=== PATIENT | male | born 1945 | race Caucasian/White ===

== ENCOUNTER 2022-10-12 15:37 | Emergency (ER) | payer OTHER ==
--- OUTSIDE RECORDS SUMMARY | 2022-10-12 15:41 | XMS REPORT | Continuity of Care Document ---
:1945 Author Organization [facility] t Address [address] [place] [address] Care Team Providers Name Role Phone [facility] Primary Care Physician [phone] SWETA ROSAS Attending Clinician Unavailable SARAH HAIR Attending Clinician Unavailable [facility] Attending Clinician Unavailable CRISTY LIRIANO Attending Clinician Unavailable [facility] Attending Clinician Unavailable [id number] Attending Clinician Unavailable Sweta Rosas DO Attending Clinician Payers Payer Name Policy Type Policy Number Effective Date Expiration Date S serafin [employer] 7 [id number] 2022 [id number] GOLD 00:00:00 PLUS 2021 Problems Condition Condition Condition Status Onset Resolution Last Treating Co mments Source Name Details Category Date Date Treatment Clinician Date Abnormal Abnormal Disease Active 2021-[address] scan, CT scan, 2 Seybol d chest chest 00:00: - 00 Externa l Mass of Mass of Disease Active 2021-10 Joy left lung left lung 2 Seyb old 00:00: - 00 Externa l Elevated Elevated Disease Active 2021-10 Kelse y liver liver 2 Seybold function function 00:00: - tests tests 00 Externa l 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 2 Seybol d 00:00: - 00 Externa l Memory Memory Disease Active 2021-10 Joy loss loss 2 Seybold 00:00: - 00 Externa l Hyperkalem Hyperkalem Disease Active 2021-10 Doug velasquez ia ia 2-09 Seybold 00:00: - 00 Externa l Falls Falls Disease Active 2021-10 Joy 1-16 Seybold 00:00: - 00 Externa l 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 1-16 Seybold disease disease 00:00: - 00 Externa l PVD PVD Disease Active 2021-10 Joy (periphera (periphera 1-16 Se ybold l vascular l vascular 00:00: - disease) disease) 00 Culinary Director a l Primary Primary Disease Active Joy insomnia insomnia 6-29 Seybol d 00:00: - 00 Externa l Current Current Disease Active Joy mild mild 5-05 Seybold 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:00: - major major 00 Externa depressive depressive l disorder disorder without without prior prior episode episode Gastroesop Gastroesop Disease Active Doug velasquez hageal hageal 5-05 Seybold reflux reflux 00:00: - disease disease 00 Externa without without l esophagiti esophagiti s s Other Other Disease Active Joy emphysema emphysema 5-05 Seyb old 00:00: - 00 Externa l Primary Primary Disease Active Joy hypertensi hypertensi 5-05 Se ybold on on 00:00: - 00 Externa l 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 00:00: - with with 00 Externa hyperlipid hyperlipid l emia emia History of History of Disease Active Doug velasquez skin skin 5-05 Seybold cancer cancer 00:00: - 00 Externa l Bipolar 1 Bipolar 1 Disease Active Ge kothariy disorder disorder 5-05 Seybol d 00:00: - 00 Externa l 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 Social History Social Habit Start Date Stop Date Quantity Comments Source History of tobacco Cigarette Smoker Joy davion - use External Alcohol intake 2022-09-06 2022-09-06 Ex-drinker Joyalex roberts - 00:00:00 00:00:00 (finding) External Education 2022-02-23 2022-02-23 16 Joy Guzman - 00:00:00 00:00:00 External Cigarettes smoked 2022-02-23 2022-02-23 Joy Kotharidavion - current (pack per 00:00:00 00:00:00 Externa l day) - Reported Cigarette 2022-02-23 2022-02-23 Joyalex Guzman - pack-years 00:00:00 00:00:00 External Tobacco use and 2022-02-23 2022-02-23 Smokeless tobacco Ke janessa Kothariybamie - exposure 00:00:00 00:00:00 non-user External Sex [birth year] Joy ricardo - 00:00:00 00:00:00 External Smoking Status Start Date Stop Date Source Smokes tobacco daily 2022-02-23 00:00:00 Joyalex Guzman - External Medications Ordered Filled Start Stop Current Ordering Indication Dosage Frequency Signature Comments Components Source Medication Medication Date Date Medication? Clinician (SIG) Name Name Multiple 2021-10 Yes 1{each} Take 1 Lexus ey Vitamins-Ir 1-16 each by Marci dia on 10:24: mouth - (MULTIVITAM 35 daily Externa IN PLUS l IRON ADULT OR) Multiple 2021-10 Yes 1{each} Take 1 Lexus ey Vitamins-Ir 1-16 each by Deanneo south on 10:24: mouth - (MULTIVITAM 35 daily Externa IN PLUS l IRON ADULT OR) Aspirin 81 2021-10 Yes 81mg Take 81 mg K elsey MG oral 1-16 by mouth Seybold Chewable 10:17: daily - Tablet 02 Externa l Lisinopril 2021-10 Yes 10mg Take 10 mg K elsey 10 MG oral 1-16 by mouth Seybo ld Tablet 10:17: daily - 02 Externa l Sildenafil 2021-10 Yes 100mg QD Take 100 Ke lsey Citrate 100 1-16 mg by Seybold MG oral 10:17: mouth - Tablet 02 daily as Externa needed l Aspirin 81 2021-10 Yes 81mg Take 81 mg K elsey MG oral 1-16 by mouth Seybold Chewable 10:17: daily - Tablet 02 Externa l Lisinopril 2021-10 Yes 10mg Take 10 mg K elsey 10 MG oral 1-16 by mouth Seybo ld Tablet 10:17: daily - 02 Externa l Sildenafil 2021-10 Yes 100mg QD Take 100 Ke lsey Citrate 100 1-16 mg by Seybold MG oral 10:17: mouth - Tablet 02 daily as Externa needed l Testosteron 2021-10- No Apply Lexus ey e 50 MG/5GM -16 11-16 topically Se ybold (1%) 10:17: 00:00 daily - transdermal 02 :00 Externa Gel l busPIRone 2021-10- No 15mg Take 15 mg K elsey HCl 15 MG 1-16 11-16 by mouth 3 Sey bold oral Tablet 10:17: 00:00 times - 00 :00 daily Externa l Docusate 2021-10- No 100mg Take 100 Ge sey Sodium 1-16 11-16 mg by Seybold (DSS) 100 10:16: 00:00 mouth 2 - MG oral 50 :00 times Externa Capsule daily l Lactulose 2021-10- No 10g Take 10 g Ke lsey 10 g oral 1-16 11-16 by mouth 3 Sey bold Pack 10:16: 00:00 times - 41 :00 daily Externa l Nicotine 2021-10- No 2mg Take 2 mg Ge sey Polacrilex 1-16 11-16 by mouth Seyb old 2 MG 10:16: 00:00 as needed - mouth/throa 38 :00 Externa t Lozenge l Fluticasone 2021-10 Yes 2{puff} Inhale 2 Joy Propionate 1-16 puffs into Sey bold HFA 00:00: the lungs - (Flovent 00 2 times Externa HFA) 110 daily l MCG/ACT inhalation Aerosol Fluticasone 2021-10 Yes 2{puff} Inhale 2 Joy Propionate 1-16 puffs into Sey bold HFA 00:00: the lungs - (Flovent 00 2 times Externa HFA) 110 daily l MCG/ACT inhalation Aerosol Albuterol 2021-10 Yes [id number] 2{puff} Q.25D Inhale 2 Joy HFA 108 (90 0-12 puffs into Se ybold Base) 00:00: the lungs - MCG/ACT IN 00 every 6 Culinary Director a AERS hours as l needed for wheezing Carvedilol 2021-10 Yes 6.25mg Take 1 Ge sey 6.25 MG 0-12 tablet Seybold oral Tablet 00:00: (6.25 mg - 00 total) by Externa mouth in l the morning and 1 tablet (6.25 mg total) in the evening. Take with meals. Albuterol 2021-10 Yes [id number] 2{puff} Q.25D Inhale 2 Joy HFA 108 (90 0-12 puffs into Se ybold Base) 00:00: the lungs - MCG/ACT IN 00 every 6 Culinary Director a AERS hours as l needed for wheezing Carvedilol 2021-10 Yes 6.25mg Take 1 Ge sey 6.25 MG 0-12 tablet Seybold oral Tablet 00:00: (6.25 mg - 00 total) by Externa mouth in l the morning and 1 tablet (6.25 mg total) in the evening. Take with meals. Famotidine Yes [id number] 20mg Take 1 Joy (PEPCID) 20 9-19 tablet (20 Se ybold MG oral 00:00: mg total) - tablet 00 by mouth 2 Externa times l daily Famotidine Yes [id number] 20mg Take 1 Joy (PEPCID) 20 9-19 tablet (20 Se ybold MG oral 00:00: mg total) - tablet 00 by mouth 2 Externa times l daily Quetiapine Yes [id number] 400mg Take 1 Joy Fumarate 9-01 tablet Seybold 400 MG oral 00:00: (400 mg - Tablet 00 total) by Externa mouth l nightly Quetiapine Yes [id number] 400mg Take 1 Joy Fumarate 06-22 tablet Seybold 400 MG oral 00:00: (400 mg - Tablet 00 total) by Externa mouth l nightly Metformin Yes PLEASE SEE Ke lsey HCl ER, 8 ATTACHED Seybold OSM, 500 MG 00:00: FOR - oral TABLET 00 DETAILED Exte rna SR 24 HR DIRECTIONS l Metformin Yes PLEASE SEE Ke lsey HCl ER, 05-29 ATTACHED Seybold OSM, 500 MG 00:00: FOR - oral TABLET 00 DETAILED Exte rna SR 24 HR DIRECTIONS l Bupropion Yes 300mg Take 1 Kelse y HCL XL 300 8-04 tablet Seybold MG OR TB24 00:00: (300 mg - 00 total) by Externa mouth l daily Bupropion Yes 300mg Take 1 Kelse y HCL XL 300 8-04 tablet Seybold MG OR TB24 00:00: (300 mg - 00 total) by Externa mouth l daily Atorvastati Yes 80mg Take 1 Lexus ey n Calcium 7-28 tablet (80 Seyb old 80 MG oral 00:00: mg total) - Tablet 00 by mouth Externa daily l Atorvastati Yes 80mg Take 1 Lexus ey n Calcium 7-28 tablet (80 Seyb old 80 MG oral 00:00: mg total) - Tablet 00 by mouth Externa daily l Fluticasone 2021- No [id number] 2{puff} Inhale 2 Joy Propionate 7- 11-16 puffs into Se ybold HFA 00:00: 00:00 the lungs - (Flovent 00 :00 2 times Externa HFA) 110 daily l MCG/ACT inhalation Aerosol Sildenafil Yes 100mg QD Take 100 Ke lsey Citrate 100 5-05 mg by Seybold MG oral 13:44: mouth Tablet 08 daily as needed Aspirin 81 Yes 81mg Take 81 mg K elsey MG oral 5-05 by mouth Seybold Chewable 13:44: daily Tablet 04 Atorvastati Yes 80mg Take 80 mg Joy n Calcium 5-05 by mouth Seybol d 80 MG oral 13:44: daily Tablet 04 Bupropion 2022-0 Yes 300mg Take 300 Ge sey HCL XL 300 5-05 mg by Seybold MG OR TB24 13:44: mouth 04 daily busPIRone 0 Yes 15mg Take 15 mg Ke lsey HCl 15 MG 5-05 by mouth 3 Seyb old oral Tablet 13:44: times 04 daily Docusate Yes 100mg Take 100 Lexus ey Sodium 5-05 mg by Seybold (DSS) 100 13:44: mouth 2 MG oral 04 times Capsule daily Famotidine Yes 20mg Take 20 mg K elsey (PEPCID) 20 5-05 by mouth Seyb old MG oral 13:44: in the tablet 04 morning and 20 mg in the evening. Lactulose Yes 10g Take 10 g Ge sey 10 g oral 5-05 by mouth 3 Seyb old Pack 13:44: times 04 daily Lisinopril Yes 10mg Take 10 mg K elsey 10 MG oral 5-05 by mouth Seybo ld Tablet 13:44: daily 04 Metformin Yes 500mg Take 500 Ge sey HCl ER, 5-05 mg by Seybold OSM, 500 MG 13:44: mouth oral TABLET 04 daily SR 24 HR (with breakfast) Nicotine Yes 2mg Take 2 mg Lexus ey Polacrilex 5-05 by mouth Seybo ld 2 MG 13:44: as needed mouth/throa 04 t Lozenge Quetiapine Yes Take by Lexus ey Fumarate 5-05 mouth Seybold 400 MG oral 13:44: daily TABLET SR 04 24 HR Testosteron Yes Apply Kelse y e 50 MG/5GM 5-05 topically Sey bold (1%) 13:44: daily transdermal 04 Gel Flovent HFA Yes 2{puff} 2 puffs 2 Joy 110 MCG/ACT 4-07 times Seybold inhalation 00:00: daily Aerosol 00 Carvedilol Yes Joy 6.25 MG 2-23 Seybold oral Tablet 00:00: 00 Immunizations Ordered Immunization Filled Immunization Date Status Commen ts Source Name Name Influenza Virus 2022-09-06 Completed Joy Se ybold Vaccine, 00:00:00 - External Quadrivalent, High Dose, Age 65 And Up Pneumococcal Vaccine, 2022-09-06 Completed Ge sey Seybold Polysaccharide 00:00:00 - External Influenza Virus 2022-09-06 Completed Joy Se ybold Vaccine, 00:00:00 - External Quadrivalent, High Dose, Age 65 And Up Pneumococcal Vaccine, 2022-09-06 Completed Ge sey Seybold Polysaccharide 00:00:00 - External Vital Signs Vital Name Observation Time Observation Value Comments Source Systolic blood 2022-09-29 16:31:00 128 mm[Hg] Joy Seybold - pressure External Diastolic blood 2022-09-29 16:31:00 75 mm[Hg] Kelse y Seybold - pressure External Heart rate 2022-09-29 16:31:00 81 /min Joy Ratliff eybold - External Body temperature 2022-09-29 16:31:00 36.06 Yamileth Lexus ey Seybold - External Respiratory rate 2022-09-29 16:31:00 14 /min Lexus ey Seybold - External Body height 2022-09-29 16:31:00 182.9 cm Joy Ratliff eybold - External Body weight 2022-09-29 16:31:00 73.936 kg Joy Ratliff eybold - External BMI 2022-09-29 16:31:00 22.11 kg/m2 Joy Ratliff eybold - External Oxygen saturation in 2022-09-29 16:31:00 99 /min Joy Kothariybold - Arterial blood by External Pulse oximetry Oxygen saturation in 2022-09-06 17:11:00 93 /min Joy Seybold - Arterial blood by External Pulse oximetry Systolic blood 2022-09-06 16:09:00 134 mm[Hg] Joy Seybold - pressure External Diastolic blood 2022-09-06 16:09:00 83 mm[Hg] Kelse y Seybold - pressure External Body temperature 2022-09-06 16:09:00 35.72 Yamileth Lexus ey Seybold - External Respiratory rate 2022-09-06 16:09:00 21 /min Lexus osman Seybold - External Body height 2022-09-06 16:09:00 182.9 cm Joy S eybold - External Body weight 2022-09-06 16:09:00 75.751 kg Joy Ratliff eybold - External BMI 2022-09-06 16:09:00 22.65 kg/m2 Joy Ratliff eybold - External Systolic blood 2022-02-23 18:35:00 132 mm[Hg] Joy Seybold pressure Diastolic blood 2022-02-23 18:35:00 83 mm[Hg] Kelse y Seybold pressure Heart rate 2022-02-23 18:35:00 60 /min Joy Ratliff eybold Body temperature 2022-02-23 18:35:00 36.83 Yamileth Lexus ey Seybold Respiratory rate 2022-02-23 18:35:00 14 /min Lexus ey Seybold Body height 2022-02-23 18:35:00 182.9 cm Joy Ratliff eybold Body weight 2022-02-23 18:35:00 77.111 kg Joy Ratliff eybold BMI 2022-02-23 18:35:00 23.06 kg/m2 Joy osmanbold Oxygen saturation in 2022-02-23 18:35:00 98 /min Joy Thomas Arterial blood by Pulse oximetry Procedures Procedure Date / Time Performed Performing Clinician Sourc e [facility] 2022-09-06 17:22:40 Sweta Rosas ld - External Encounters Start End Encounter Admission Attending Care Care Encounter Source Date/Time Date/Time Type Type Clinicians Facility Department ID 2022-10-13 2022-10-13 Outpatient JOY ROSAS [id number] Joy 11:15:00 11:15:00 SWETA Seybol d 2022-10-13 2022-10-13 Outpatient JOY HAIR [id number] Joy 10:00:00 10:00:00 WALID Seybol d 2022-10-12 2022-10-12 Outpatient JOY ROSAS [id number] Joy 14:00:00 14:00:00 SWETA Seybol d 2022-10-12 2022-10-12 Outpatient JOY ROSAS [id number] Joy 10:30:00 10:30:00 SWETA Seybol d 2022-10-11 2022-10-11 Outpatient JOY ZEE [id number] Joy 11:30:00 11:30:00 Seybol d 2022-10-11 2022-10-11 Outpatient JOY ZEE [id number] Joy 10:30:00 10:30:00 Seybol d 2022-10-10 2022-10-10 Outpatient PREZAS, JOY ZEE [id number] Joy 00:00:00 00:00:00 SWETA Seybol d 2022-10-09 2022-10-09 Outpatient [facility] JOY ZEE [id number] Joy 13:30:00 13:30:00 Seybol d 2022-10-06 2022-10-06 Outpatient PREZAS, JOY ZEE [id number] Joy 00:00:00 00:00:00 SWETA Seybol d 2022-10-05 2022-10-05 Outpatient PREZAS, JOY ZEE [id number] Joy 11:00:00 11:00:00 SWETA Seybol d 2022-10-04 2022-10-04 Outpatient JOY ZEE [id number] Joy 09:30:00 09:30:00 Seybol d 2022-10-04 2022-10-04 Outpatient PREZAS, JOY ZEE [id number] Joy 00:00:00 00:00:00 SWETA Seybol d 2022-10-04 2022-10-04 Outpatient PREZAS, JOY ZEE [id number] Joy 00:00:00 00:00:00 SWETA Seybol d 2022-10-04 2022-10-04 Outpatient CONFERENCE, JOY ZEE [id number] Joy 00:00:00 00:00:00 LDC Seybol d 2022-10-02 2022-10-02 Outpatient LAB90 JOY ZEE [id number] Joy 09:45:00 09:45:00 Seybol d 2022-10-02 2022-10-02 Outpatient PREZAS, JOY ZEE [id number] Joy 00:00:00 00:00:00 SWETA Seybol d 2022-10-02 2022-10-02 Outpatient JOY ZEE [id number] Joy 00:00:00 00:00:00 Seybol d 2022-09-29 2022-09-29 Outpatient LAB90 JOY ZEE [id number] Joy 11:15:00 11:15:00 Seybol d 2022-09-29 2022-09-29 Outpatient PREZAS, JOY ZEE [id number] Joy 10:30:00 10:30:00 SWETA Seybol d 2022-09-29 2022-09-29 Outpatient PREZAS, JOY ZEE [id number] Joy 00:00:00 00:00:00 SWETA Seybol d 2022-09-28 2022-09-28 Outpatient JOY ZEE [id number] Joy 13:15:00 13:15:00 Seybol d 2022-09-28 2022-09-28 Outpatient LAB47 JOY ZEE [id number] Joy 11:15:00 11:15:00 Seybol d 2022-09-28 2022-09-28 Outpatient JOY ZEE [id number] Joy 10:30:00 10:30:00 Seybol d 2022-09-22 2022-09-22 Outpatient JOY ZEE [id number] Joy 13:15:00 13:15:00 Seybol d 2022-09-22 2022-09-22 Outpatient JOY ZEE [id number] Joy 11:00:00 11:00:00 Seybol d 2022-09-22 2022-09-22 Outpatient PREZAS, JOY ZEE [id number] Joy 00:00:00 00:00:00 SWETA Seybol d 2022-09-22 2022-09-22 Outpatient PREZAS, JOY ZEE [id number] Joy 00:00:00 00:00:00 SWETA Seybol d 2022-09-07 2022-09-07 Outpatient PREZASJOY [id number] Joy 00:00:00 00:00:00 SWETA Seybol d 2022-09-06 2022-09-06 Outpatient LAB90 JOY ZEE [id number] Joy 11:45:00 11:45:00 Seybol d 2022-09-06 2022-09-06 Outpatient PREZAS, JOY ZEE [id number] Joy 10:45:00 10:45:00 SWETA Seybol d 2022-08-30 2022-08-30 Outpatient PREZAS, JOY ZEE [id number] Joy 13:45:00 13:45:00 SWETA Seybol d 2022-08-28 2022-08-28 Outpatient PREZAS, JOY ZEE [id number] Joy 09:15:00 09:15:00 SWETA Seybol d 2022-08-25 2022-08-25 Outpatient PREZAS, JOY ZEE [id number] Joy 14:15:00 14:15:00 SWETA Seybol d 2022-08-23 2022-08-23 Outpatient PREZAS, JOY ZEE [id number] Joy 00:00:00 00:00:00 SWETA Seybol d 2022-07-31 2022-07-31 Outpatient PREZAS, JOY ZEE [id number] Joy 00:00:00 00:00:00 SWETA Seybol d 2022-07-18 2022-07-18 Outpatient PREZAS, JOY ZEE [id number] Joy 14:00:00 14:00:00 SWETA Seybol d 2022-06-22 2022-06-22 Outpatient PREZAS, JOY ZEE [id number] Joy 00:00:00 00:00:00 SWETA Seybol d 2022-05-26 2022-05-26 Outpatient PREZAS, JOY ZEE [id number] Joy 13:30:00 13:30:00 SWETA Seybol d 2022-04-19 2022-04-19 Office Prezas, Mares [id number] Joy 14:45:00 15:15:00 Visit Sweta Hoyt [id number] Se ybold [id number] 2022-04-18 2022-04-18 Outpatient PREZAS, JOY ZEE [id number] Joy 09:45:00 09:45:00 SWETA Seybol d 2022-04-18 2022-04-18 Outpatient PREZAS, JOY JOY [id number] Joy 00:00:00 00:00:00 SWETA Seybol d 2022-03-29 2022-03-29 Outpatient PREZAS, JOY ZEE [id number] Joy 00:00:00 00:00:00 SWETA Seybol d 2022-03-28 2022-03-28 Outpatient PREZAS, JOY ZEE [id number] Joy 00:00:00 00:00:00 SWETA Seybol d 2022-03-08 2022-03-08 Outpatient PREZAS JOY ZEE [id number] Joy 00:00:00 00:00:00 SWETA Seybol d 2022-03-07 2022-03-07 Outpatient LAB90 JOY ZEE [id number] Joy 09:40:00 09:40:00 Seybol d 2022-03-02 2022-03-02 Outpatient PREZAS, JOY ZEE [id number] Joy 00:00:00 00:00:00 SWETA Seybol d 2022-02-23 2022-02-23 Office PrezasMasood [id number] Joy 13:30:00 14:15:00 Visit Sweta Lai [id number] davion [id number] 2022-02-23 2022-02-23 Outpatient PREZAS JOY ZEE [id number] Joy 00:00:00 00:00:00 SWETA Seybol d Results Test Description Test Time Test Comments Results Result Comments Source [facility] 2022-09-06 17:33:02 Test Item Value Reference Range Interpretation Comme nts [facility] left side (test code See_Comment L [Automated message] The system = [id number]) which generated this result transmitted ref erence range: 1.40 - 0.90 NA. The reference range was not u sed to interpret this result as normal/abnormal. [employer] right side (test See_Comment P resentation Factors: code = 71015-9C) Hypertensio n, Smoking HistoryExercise Modality: At RestBoth feet w ere retested twice with warm ers still couldnt get a good read on the left foot Normal - 1.40 - 1.00Borderline - 0.99 - 0.90Mild - 0.89 - 0.60Moderate - 0.59 - 0.30Severe - 0.29 - 0.00 [ Automated message] The sy stem which generated this result transmitted ref erence range: 1.40 - 0.90 NA. The reference range was not u sed to interpret this result as normal/abnormal. Lab Interpretation (test code Abnormal = 02526-7) Joy Guzman - External
[2022-10-12] MEDS ORDERED: NA CHLORIDE 0.9% 1,000 ML ONE (15:53)
[2022-10-12] MEDS ORDERED: NA CHLORIDE 0.9% 500 ML ONE (15:54)
[2022-10-12 16:13] LABS: Absolute Lymphocytes (CBC) 0.7 K/uL (0.7-4.9); Hematocrit 30.3 % (39.6-49.0); MCV 93.6 fL (80-100); MPV 6.5 fL (7.6-11.3); RBC Red Blood Cell Count 3.24 M/uL (4.33-5.43)
[2022-10-12 16:31] LABS: Albumin 3.2 g/dL (3.4-5.0); Bilirubin Total 0.3 mg/dL (0.2-1.0); Potassium 4.8 mmol/L (3.5-5.1); Troponin High Sensitivity 9.9 pg/mL (<58.9)
--- NOTE | 2022-10-12 17:14 | RAD REPORT ---
EXAM DESCRIPTION: RAD - Chest Single View - 10/12/2022 5:08 pm CLINICAL HISTORY: hypotension COMPARISON: No comparisonsNo comparisons FINDINGS: Lines: None. Lungs: Nodular opacities overlying both upper lobes. No consolidation or edema. Pleural: No significant pleural effusions or pneumothorax. Cardiac: The heart size is within normal limits. Mediastinum: Within normal limits. Bones: No acute fractures. Other: None IMPRESSION: Vague nodular opacities overlying both upper lobes. Mild probably not an acute process, recommend chest CT for further characterization. This need not be done emergently.
--- NOTE | 2022-10-12 17:21 | EDPHYS ---
Physician Documentation [facility] Name: Tom Braun Age: 77 yrs Sex: Male : 1945 Arrival Date: 10/12/2022 Time: 15:38 Bed 8 Private MD: ED Physician Darrick Louis HPI: 10/12 15:46 This 77 yrs old Male presents to ER via EMS with complaints of hypotension. rt 15:46 Presents to the ED from his cancer clinic with hypotension. Patient had a recent rt diagnosis of a metastatic cancer, either pancreatic or long as the primary. The patient was at a follow-up appointment today where he was found have a blood pressure of 70s over 40s. He states that he felt somewhat weak and dizzy at that time. Received fluids by EMS, about 300 cc. Hypotension has resolved, states that he feels well. Reports recent weight loss. Denies other acute complaints at this time, symptoms are moderate in severity, no other aggravating or alleviating factors. Historical: - Allergies: 15:41 No Known Allergies; kc6 - Home Meds: 15:45 Albuterol Inhl [Active]; Aspirin EC Oral [Active]; atorvastatin 80 mg oral tab kc6 [Active]; bupropion HCl 300 mg oral Tb24 [Active]; carvedilol 6.25 mg oral tab [Active]; famotidine 20 mg oral tab [Active]; fluticasone [Active]; lisinopril 10 mg oral tab [Active]; metformin 500 mg oral tab [Active]; quetiapine [Active]; sildenafil [Active]; - PMHx: 15:41 Hypertensive disorder; Diabetes mellitus; kc6 15:45 Cataract; Bipolar disorder; Gastroesophageal reflux disease; skin cancer; keratitis; kc6 emphysema; scoliosis; - PSHx: 15:41 Appendectomy; kc6 - Immunization history:: Client reports receiving the 2nd dose of the Covid vaccine, Flu vaccine is up to date. - Social history:: Smoking status: Patient reports the use of cigarette tobacco products, smokes one-half pack cigarettes per day. - Family history:: not pertinent. ROS: 15:46 Constitutional: Negative for fever, chills, and weight loss, Eyes: Negative for injury, rt pain, redness, and discharge, Neck: Negative for injury, pain, and swelling, Cardiovascular: Negative for chest pain, palpitations, and edema, Respiratory: Negative for shortness of breath, cough, wheezing, and pleuritic chest pain, Abdomen/GI: Negative for abdominal pain, nausea, vomiting, diarrhea, and constipation, Back: Negative for injury and pain, MS/Extremity: Negative for injury and deformity, Skin: Negative for injury, rash, and discoloration, Psych: Negative for depression, anxiety, suicide ideation, homicidal ideation, and hallucinations. 15:46 Constitutional: Positive for weight loss, hypotension. 15:46 Neuro: Positive for dizziness, Negative for syncope. Exam: 15:46 Constitutional: This is a well developed, well nourished patient who is awake, alert, rt and in no acute distress. Head/Face: Normocephalic, atraumatic. Eyes: Pupils equal round and reactive to light, extra-ocular motions intact. Lids and lashes normal. Conjunctiva and sclera are non-icteric and not injected. Cornea within normal limits. Periorbital areas with no swelling, redness, or edema. ENT: Nares patent. No nasal discharge, no septal abnormalities noted. Tympanic membranes are normal and external auditory canals are clear. Oropharynx with no redness, swelling, or masses, exudates, or evidence of obstruction, uvula midline. Mucous membranes moist. Neck: Trachea midline, no thyromegaly or masses palpated, and no cervical lymphadenopathy. Supple, full range of motion without nuchal rigidity, or vertebral point tenderness. No Meningismus. Chest/axilla: Normal chest wall appearance and motion. Nontender with no deformity. No lesions are appreciated. Cardiovascular: Regular rate and rhythm with a normal S1 and S2. No gallops, murmurs, or rubs. Normal PMI, no JVD. No pulse deficits. Respiratory: Lungs have equal breath sounds bilaterally, clear to auscultation and percussion. No rales, rhonchi or wheezes noted. No increased work of breathing, no retractions or nasal flaring. Abdomen/GI: Soft, non-tender, with normal bowel sounds. No distension or tympany. No guarding or rebound. No evidence of tenderness throughout. Skin: Warm, dry with normal turgor. Normal color with no rashes, no lesions, and no evidence of cellulitis. MS/ Extremity: Pulses equal, no cyanosis. Neurovascular intact. Full, normal range of motion. Neuro: Awake and alert, GCS 15, oriented to person, place, time, and situation. Cranial nerves II-XII grossly intact. Motor strength 5/5 in all extremities. Sensory grossly intact. Cerebellar exam normal. Normal gait. Psych: Awake, alert, with orientation to person, place and time. Behavior, mood, and affect are within normal limits. 15:46 ECG was reviewed by the Attending Physician. Vital Signs: 15:38 BP 136 / 89; Pulse 73; Resp 16 S; Pulse Ox 100% on R/A; Weight 72.57 kg (R); Height 6 kc6 ft. 0 in. (182.88 cm) (R); Pain 0/10; 16:52 BP 149 / 87; Pulse 83; Resp 17 S; Pulse Ox 100% on R/A; Pain 0/10; kc6 18:00 BP 159 / 90; Pulse 88; Resp 17; Pulse Ox 99% ; vg1 15:38 Body Mass Index 21.70 (72.57 kg, 182.88 cm) kc6 MDM: 15:39 Patient medically screened. rt 17:21 Differential Diagnosis Sepsis, anemia, dehydration. Data reviewed: vital signs, nurses rt notes, lab test result(s), EKG, radiologic studies. ED course: Patient presents to the ED with hypotension from the doctor's office. The hypotension has resolved upon arrival to the ED. Patient was hydrated in the emergency department symptomatic improvement. Labs are benign, chest x-ray shows expected findings due to no metastatic disease. Patient is stable for discharge, return precautions were discussed.. 18:21 ED course: Patient had an episode of vomiting while he was being discharged. He states rt that he still wishes to go home, feels well otherwise. Will prescribe patient Zofran. Patient to return if his symptoms worsen.. 10/12 15:46 Order name: CBC with Diff; Complete Time: 16:32 rt 10/12 15:46 Order name: CMP; Complete Time: 16:32 rt 10/12 15:46 Order name: EKG; Complete Time: 15:47 rt 10/12 15:46 Order name: Troponin High Sensitivity; Complete Time: 16:32 rt 10/12 15:46 Order name: Chest Single View XRAY; Complete Time: 17:17 rt 10/12 15:46 Order name: EKG - Nurse/Tech; Complete Time: 16:06 rt EC:46 Rate is 72 beats/min. Rhythm is regular, Normal Sinus Rhythm with No ectopy, Left rt bundle branch block. QRS [place] is Normal. MD interval is normal. QRS interval is normal. QT interval is normal. No Q waves. Administered Medications: 16:06 Drug: NS 0.9% 1500 ml Route: IV; Rate: 1 bolus; Site: left antecubital; kc6 Disposition Summary: 10/12/22 17:20 Discharge Ordered Location: Home rt Problem: new rt Symptoms: are resolved rt Condition: Stable rt Diagnosis - Hypotension, unspecified rt Followup: rt - With: Private Physician - When: 2 - 3 days - Reason: Discharge Instructions: - Discharge Summary Sheet rt - Hypotension rt Forms: - Medication Reconciliation Form rt - Thank You Letter rt - Antibiotic Education rt - Prescription Opioid Use rt Prescriptions: - Zofran 4 mg Oral Tablet - take 1 tablet by ORAL route every 12 hours As needed; 20 tablet; Refills: 0, rt Product Selection Permitted Signatures: Dispatcher [employer] Radha Teague RN RN kc6 Darrick Louis MD MD rt Corrections: (The following items were deleted from the chart) 15:50 15:41 PMHx: metastatic cancer; kc6 kc6
--- NOTE | 2022-10-12 17:21 | ER ---
Nurse's Notes [facility] Name: Tom Braun Age: 77 yrs Sex: Male : 1945 Arrival Date: 10/12/2022 Time: 15:38 Bed 8 Private MD: Diagnosis: Hypotension, unspecified Presentation: 10/12 15:38 Chief complaint: EMS states: they were called out to [facility] for kc6 hypotension, originally 80/60. Coronavirus screen:. Ebola Screen: No symptoms or risks identified at this time. Initial Sepsis Screen: Does the patient meet any 2 criteria? No. Patient's initial sepsis screen is negative. Does the patient have a suspected source of infection? No. Patient's initial sepsis screen is negative. Risk Assessment: Do you want to hurt yourself or someone else? Patient reports no desire to harm self or others. Onset of symptoms was October 12, 2022 at 15:41. 15:38 Method Of Arrival: EMS: [place] [id number] 15:38 Acuity: ALANNAH 3 kc6 Triage Assessment: 15:42 General: Appears in no apparent distress. comfortable, Behavior is calm, cooperative, kc6 appropriate for age. Pain: Denies pain. EENT: No signs and/or symptoms were reported regarding the EENT system. Neuro: [place] Agitation-Sedation Scale (RASS): 0 - Alert and Calm Level of Consciousness is awake, alert, obeys commands, Oriented to person, place, time, situation, Appropriate for age. Cardiovascular: Heart tones S1 S2 present Capillary refill < 3 seconds. Cardiovascular: Denies chest pain. Respiratory: Airway is patent Trachea midline Respiratory effort is even, unlabored, Respiratory pattern is regular, symmetrical, Breath sounds are clear bilaterally. Denies shortness of breath. GI: No signs and/or symptoms were reported involving the gastrointestinal system. : No signs and/or symptoms were reported regarding the genitourinary system. Derm: No signs and/or symptoms reported regarding the dermatologic system. Skin is intact, Skin is pink, warm \T\ dry. Musculoskeletal: No signs and/or symptoms reported regarding the musculoskeletal system. Circulation, motion, and sensation intact. Capillary refill < 3 seconds, Range of motion: intact in all extremities. Historical: - Allergies: 15:41 No Known Allergies; kc6 - Home Meds: 15:45 Albuterol Inhl [Active]; Aspirin EC Oral [Active]; atorvastatin 80 mg oral tab kc6 [Active]; bupropion HCl 300 mg oral Tb24 [Active]; carvedilol 6.25 mg oral tab [Active]; famotidine 20 mg oral tab [Active]; fluticasone [Active]; lisinopril 10 mg oral tab [Active]; metformin 500 mg oral tab [Active]; quetiapine [Active]; sildenafil [Active]; - PMHx: 15:41 Hypertensive disorder; Diabetes mellitus; kc6 15:45 Cataract; Bipolar disorder; Gastroesophageal reflux disease; skin cancer; keratitis; kc6 emphysema; scoliosis; - PSHx: 15:41 Appendectomy; kc6 - Immunization history:: Client reports receiving the 2nd dose of the Covid vaccine, Flu vaccine is up to date. - Social history:: Smoking status: Patient reports the use of cigarette tobacco products, smokes one-half pack cigarettes per day. - Family history:: not pertinent. Screenin:43 [facility] ED Fall Risk Assessment (Adult) History of falling in the last 3 months, kc6 including since admission No falls in past 3 months (0 pts) Confusion or Disorientation No (0 pts) Intoxicated or Sedated No (0 pts) Impaired Gait No (0 pts) Mobility Assist Device Used No (0 pt) Altered Elimination No (0 pt) Score/Fall Risk Level 0 - 2 = Low Risk. Abuse screen: Denies threats or abuse. Denies injuries from another. Nutritional screening: No deficits noted. Tuberculosis screening: No symptoms or risk factors identified. Assessment: 15:43 Reassessment: please see triage assessment. kc6 16:43 Reassessment: Patient appears in no apparent distress at this time. No changes from kc6 previously documented assessment. Patient and/or family updated on plan of care and expected duration. Pain level reassessed. Patient is alert, oriented x 3, equal unlabored respirations, skin warm/dry/pink. Patient denies pain at this time. Patient states feeling better. Patient states symptoms have improved. 18:33 Reassessment: Patient appears in no apparent distress at this time. Patient and/or vg1 family updated on plan of care and expected duration. Pain level reassessed. Patient is alert, oriented x 3, equal unlabored respirations, skin warm/dry/pink. Patient denies pain at this time. Patient states feeling better. Patient states symptoms have improved. Vital Signs: 15:38 BP 136 / 89; Pulse 73; Resp 16 S; Pulse Ox 100% on R/A; Weight 72.57 kg (R); Height 6 kc6 ft. 0 in. (182.88 cm) (R); Pain 0/10; 16:52 BP 149 / 87; Pulse 83; Resp 17 S; Pulse Ox 100% on R/A; Pain 0/10; kc6 18:00 BP 159 / 90; Pulse 88; Resp 17; Pulse Ox 99% ; vg1 15:38 Body Mass Index 21.70 (72.57 kg, 182.88 cm) 6 ED Course: 15:38 Patient arrived in ED. kc6 15:38 Radha Box, RN is Primary Nurse. kc6 15:39 Darrick Louis MD is Attending Physician. rt 15:41 Triage completed. kc6 15:43 Maintain EMS IV. Dressing intact. Good blood return noted. Site clean \T\ dry. Gauge \T\ lucina 6 site: 20G LAC. 15:44 Arm band placed on. kc6 15:44 Patient has correct armband on for positive identification. Bed in low position. Call kc6 light in reach. Side rails up X2. Adult w/ patient. 17:10 Chest Single View XRAY In Process Unspecified. EDMS 18:34 No provider procedures requiring assistance completed. IV discontinued, intact, vg1 bleeding controlled, No redness/swelling at site. Pressure dressing applied. Administered Medications: 16:06 Drug: NS 0.9% 1500 ml Route: IV; Rate: 1 bolus; Site: left antecubital; kc6 Medication: 18:34 VIS not applicable for this client. vg1 Outcome: 17:20 Discharge ordered by . rt 18:34 Discharged to home via wheelchair, with family. vg1 18:34 Condition: good 18:34 Instructed on discharge instructions, follow up and referral plans. medication usage, Demonstrated understanding of instructions, follow-up care, medications, Prescriptions given X 1. 18:34 Patient left the ED. vg1 Signatures: Dispatcher [employer] EDJnen Martinez RN RN vg1 Radha Box RN RN kc6 Darrick Louis MD MD rt Corrections: (The following items were deleted from the chart) 15:50 15:41 PMHx: metastatic cancer; kc6 kc6
[2022-10-12 18:42] VITALS: BP 159/90; O2SAT 99
--- NOTE | 2022-10-14 17:27 | EKG ---
Test Date: 2022-10-12 Test Time: 15:46:04 Grants Analyst: SAMINA MEASUREMENT RESULTS: Intervals: Rate: 72 [place]: 188 QRSD: 134 QT: 410 QTc: 448 [place]: P: 78 [place]: 188 QRS: -50 T: 97 INTERPRETIVE STATEMENTS: Normal sinus rhythm Left axis deviation Nonspecific intraventricular block Cannot rule out Anteroseptal infarct, age undetermined Abnormal ECG No previous ECG available for comparison Electronically Signed On 10-14-22 17:24:57 TUBE MACHINE OPERATOR by Kenan Pearson
== END 2022-10-12 18:34 | disposition home or self-care (01) ==
LOC: ER 15:37
DX: I95.9 Hypotension, unspecified (principal); E11.9 Type 2 diabetes mellitus without complications; I10 Essential (primary) hypertension; Z79.82 Long term (current) use of aspirin
CPT/HCPCS: 93005; 85025; 36415; 84484; 80053; 71045; 99284; J7040; J7030

== ENCOUNTER 2022-10-15 23:42 | Observation (INO) | payer OTHER ==
--- OUTSIDE RECORDS SUMMARY | 2022-10-15 23:47 | XMS REPORT | Continuity of Care Document ---
:1945 Author Organization [facility] t Address [address] [place] [address] Care Team Providers Name Role Phone Group, Joy Guzman [facility] Primary Care Physician SWETA ROSAS Attending Clinician Unavailable SARAH HAIR Attending Clinician Unavailable RADIOLOGY, DEPT Attending Clinician Unavailable RITIKA POQUOSON Attending Clinician Unavailable CONFERENCE, LDC Attending Clinician Unavailable LAB90 Attending Clinician Unavailable LAB47 Attending Clinician Unavailable Sweta Rosas DO Attending Clinician Payers Payer Name Policy Type Policy Number Effective Date Expiration Date S serafin [employer] MEDICARE 7 [id number] 2022 [id number] GOLD 00:00:00 PLUS 2021 Problems Condition Condition Condition Status Onset Resolution Last Treating Co mments Source Name Details Category Date Date Treatment Clinician Date Pancreatic Pancreatic Disease Active 2021-10 K elsey mass mass 2- Seybold 00:00: - 00 Externa l Abnormal Abnormal Disease Active 2021-10 Kelse y liver liver 2- Seybold ultrasound ultrasound 00:00: - 00 Externa l 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 2-22 Se ybold n n 00:00: - 00 Externa l Abnormal Abnormal Disease Active 2021-[address] scan, CT scan, 2 Seybol d chest chest 00:00: - 00 Externa l Mass of Mass of Disease Active 2021-10 Joy left lung left lung 2- Seyb old 00:00: - 00 Externa l [...] Disease Active 2021-10 Doug velasquez ia ia 2 Seybold 00:00: - 00 Externa l Falls Falls Disease Active 2021-10 Joy 16 Seybold 00:00: - 00 Externa l 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 116 Seybold disease disease 00:00: - 00 Externa l PVD PVD Disease Active 2021-10 Joy (periphera (periphera 11-06 Se ybold l vascular l vascular 00:00: - disease) disease) 00 Slot Tag Inserter a l Primary Primary Disease Active Joy [...] Bipolar 1 Bipolar 1 Disease Active Ge sey disorder disorder 02-23 Seybol d 00:00: - 00 Externa l Other Other Disease Active Joy idiopathic idiopathic 02-23 Se ybold scoliosis, scoliosis, 00:00: - thoracolum thoracolum 00 Ex terna bar region bar region l Well adult Well adult Disease Active Doug velasquez exam exam 02-23 Seybold 00:00: - 00 Externa l Tobacco Tobacco Disease Active Joy abuse abuse 02-23 Seybold 00:00: - 00 Externa l Hyperlipid Hyperlipid Disease Active Doug velasquez emia emia 02-23 Seybold 00:00: - 00 Externa l Allergies, Adverse Reactions, Alerts This patient has no known allergies or adverse reactions. Social History Social Habit Start Date Stop Date Quantity Comments Source History of tobacco Cigarette Smoker Joy Guzman - use External Alcohol intake 2022-09-06 2022-09-06 Ex-drinker Joy roberts - 00:00:00 00:00:00 (finding) External Education 2022-02-23 2022-02-23 16 Joy Guzman - 00:00:00 00:00:00 External Cigarettes smoked 2022-02-23 2022-02-23 Joyalex Guzman - current (pack per 00:00:00 00:00:00 Externa l day) - Reported Cigarette 2022-02-23 2022-02-23 Joyalex Guzman - pack-years 00:00:00 00:00:00 External Tobacco use and 2022-02-23 2022-02-23 Smokeless tobacco Hugo janessa davion - exposure 00:00:00 00:00:00 non-user External Sex [birth year] Joy ricardo - 00:00:00 00:00:00 External Smoking Status Start Date Stop Date Source Smokes tobacco daily 2022-02-23 00:00:00 Joy Thomas - External Medications Ordered Filled Start Stop Current Ordering Indication Dosage Frequency Signature Comments Components Source Medication Medication Date Date Medication? Clinician (SIG) Name Name Aspirin 81 2021-10 Yes 81mg Take 81 mg K elsey MG oral 2-22 by mouth Seybold Chewable 13:59: daily - Tablet 15 Externa l Sildenafil 2021-10 Yes 100mg QD Take 100 Ke lsey Citrate 100 2-22 mg by Seybold MG oral 13:59: mouth - Tablet 15 daily as Externa needed l Multiple 2021-10 Yes 1{each} Take 1 Lexus ey Vitamins-Ir 2-22 each by Seybo ld on 13:59: mouth - (MULTIVITAM 15 daily Externa IN PLUS l IRON ADULT OR) Aspirin 81 2021-10 Yes 81mg Take 81 mg K elsey MG oral 2-22 by mouth Seybold Chewable 13:59: daily - Tablet 15 Externa l Sildenafil 2021-10 Yes 100mg QD Take 100 Ke lsey Citrate 100 2-22 mg by Seybold MG oral 13:59: mouth - Tablet 15 daily as Externa needed l Multiple 2021-10 Yes 1{each} Take 1 Lexus ey Vitamins-Ir 2-22 each by Seybo ld on 13:59: mouth - (MULTIVITAM 15 daily Externa IN PLUS l IRON ADULT OR) Atorvastati 2021-10 Yes [id number] 80mg Take 1 Joy n Calcium 2-12 tablet (80 Seyb old 80 MG oral 00:00: mg total) - Tablet 00 by mouth Externa daily l Lisinopril 2021-10 Yes [id number] 10mg Take 1 K elsey 10 MG oral 2-12 tablet (10 Sey bold Tablet 00:00: mg total) - 00 by mouth Externa daily l Atorvastati 2021-10 Yes [id number] 80mg Take 1 Joy n Calcium 2-12 tablet (80 Seyb old 80 MG oral 00:00: mg total) - Tablet 00 by mouth Externa daily l Lisinopril 2021-10 Yes [id number] 10mg Take 1 K elsey 10 MG oral 2-12 tablet (10 Sey bold Tablet 00:00: mg total) - 00 by mouth Externa daily l Multiple 2021-10 Yes 1{each} Take 1 Lexus ey Vitamins-Ir 1-16 each by Seybo ld on 10:24: mouth - (MULTIVITAM 35 daily Externa IN PLUS l IRON ADULT OR) Multiple 2021-10 Yes 1{each} Take 1 Lexus ey Vitamins-Ir 1-16 each by Seybo ld on 10:24: mouth - (MULTIVITAM 35 daily [...] No Apply Lexus ey e 50 MG/5GM 1-16 11-16 topically Se ybold (1%) 10:17: 00:00 [...] l MCG/ACT inhalation Aerosol Albuterol 2021-10 Yes [id number] 2{puff} Q.25D Inhale 2 Joy HFA 108 (90 0-12 puffs into Se ybold Base) 00:00: the lungs - MCG/ACT IN 00 every 6 Slot Tag Inserter a AERS hours as l needed for wheezing Carvedilol 2021-10 Yes 6.25mg Take 1 Ge sey 6.25 MG 0-12 tablet Seybold oral Tablet 00:00: (6.25 mg - 00 total) by Externa mouth in l the morning and 1 tablet (6.25 mg total) in the evening. Take with meals. Albuterol 2021-10 Yes [id number] 2{puff} Q.25D Inhale 2 Joy HFA 108 (90 0-12 puffs into Se ybold Base) 00:00: the lungs - MCG/ACT IN 00 every 6 Slot Tag Inserter a AERS hours as l needed for wheezing Carvedilol 2021-10 Yes 6.25mg Take 1 Ge sey 6.25 MG 0-12 tablet Seybold oral Tablet 00:00: (6.25 mg - 00 total) by Externa mouth in l the morning and 1 tablet (6.25 mg total) in the evening. Take with meals. Albuterol 2021-10 Yes [id number] 2{puff} Q.25D Inhale 2 Joy HFA 108 (90 0-12 puffs into Se ybold Base) 00:00: the lungs - MCG/ACT IN 00 every 6 Slot Tag Inserter a AERS hours as l needed for wheezing Carvedilol 2021-10 Yes 6.25mg Take 1 Ge sey 6.25 MG 0-12 tablet Seybold oral Tablet 00:00: (6.25 mg - 00 total) by Externa mouth in l the morning and 1 tablet (6.25 mg total) in the evening. Take with meals. Albuterol 2021-10 Yes [id number] 2{puff} Q.25D Inhale 2 Joy HFA 108 (90 0-12 puffs into Se ybold Base) 00:00: the lungs - MCG/ACT IN 00 every 6 Slot Tag Inserter a AERS hours as l needed for wheezing Carvedilol 2021-10 Yes 6.25mg Take 1 Ge sey 6.25 MG 0-12 tablet Seybold oral Tablet 00:00: (6.25 mg - 00 total) by Externa mouth in l the morning and 1 tablet (6.25 mg total) in the evening. Take with meals. Famotidine Yes [id number] 20mg Take 1 Joy (PEPCID) 20 9-19 tablet (20 Se ybold MG oral 00:00: mg total) - tablet 00 by mouth 2 Externa times l daily Famotidine 0 Yes [id number] 20mg Take 1 Joy (PEPCID) 20 9-19 tablet (20 Se ybold MG oral 00:00: mg total) - tablet 00 by mouth 2 Externa times l daily Famotidine 2021-0 Yes [id number] 20mg Take 1 Joy (PEPCID) 20 9-19 tablet (20 Se ybold MG oral 00:00: mg total) - tablet 00 by mouth 2 Externa times l daily Famotidine 2021-0 Yes [id number] 20mg Take 1 Joy (PEPCID) 20 9-19 tablet (20 Se ybold MG oral 00:00: mg total) - tablet 00 by mouth 2 Externa times l daily Quetiapine 2021-0 Yes [id number] 400mg Take 1 Joy Fumarate 9-01 tablet Seybold 400 MG oral 00:00: (400 mg - Tablet 00 total) by Externa mouth l nightly Quetiapine 2021-0 Yes [id number] 400mg Take 1 Joy Fumarate 9-01 tablet Seybold 400 MG oral 00:00: (400 mg - Tablet 00 total) by Externa mouth l nightly Quetiapine 2021-0 Yes [id number] 400mg Take 1 Joy Fumarate 9- tablet Seybold 400 MG oral 00:00: (400 mg - Tablet 00 total) by Externa mouth l nightly Quetiapine 2021-0 Yes [id number] 400mg Take 1 Joy Fumarate 9-01 tablet Seybold 400 MG oral 00:00: (400 mg - Tablet 00 total) by Externa mouth l nightly Metformin 2021-0 Yes PLEASE SEE Ke lsey HCl ER, 8-08 ATTACHED Seybold OSM, 500 MG 00:00: FOR - oral TABLET 00 DETAILED Exte rna SR 24 HR DIRECTIONS l Metformin 2021-0 Yes PLEASE SEE Ke lsey HCl ER, 8-08 ATTACHED Seybold OSM, 500 MG 00:00: FOR - oral TABLET 00 DETAILED Exte rna SR 24 HR DIRECTIONS l Metformin 2021-0 Yes PLEASE SEE Ke lsey HCl ER, 8-08 ATTACHED Seybold OSM, 500 MG 00:00: FOR - oral TABLET 00 DETAILED Exte rna SR 24 HR DIRECTIONS l Metformin 2021-0 Yes PLEASE SEE Ke lsey HCl ER, 8-08 ATTACHED Seybold OSM, 500 MG 00:00: FOR - oral TABLET 00 DETAILED Exte rna SR 24 HR DIRECTIONS l Bupropion 2021-0 Yes 300mg Take 1 Kelse y HCL XL 300 8-04 tablet Seybold MG OR TB24 00:00: (300 mg - 00 total) by Externa mouth l daily Bupropion 2021-0 Yes 300mg Take 1 Kelse y HCL XL 300 8-04 tablet Seybold MG OR TB24 00:00: (300 mg - 00 total) by Externa mouth l daily Bupropion 2021-0 Yes 300mg Take 1 Kelse y HCL [...] mouth Externa daily l Fluticasone 2021- No [id number] 2{puff} Inhale 2 Joy Propionate 7-19 11-16 puffs into Se ybold HFA 00:00: 00:00 the lungs - (Flovent 00 :00 2 times Externa HFA) 110 daily l MCG/ACT inhalation Aerosol Sildenafil Yes 100mg QD Take 100 Ke lsey Citrate 100 5-05 mg by Seybold MG oral 13:44: mouth Tablet 08 daily as needed Aspirin 81 0 Yes 81mg Take 81 mg K elsey MG oral 5-05 by mouth Seybold Chewable 13:44: daily Tablet 04 Atorvastati Yes 80mg Take 80 mg Joy n Calcium 5-05 by mouth Seybol d 80 MG oral 13:44: daily Tablet 04 Bupropion Yes 300mg Take 300 Ge sey HCL XL 300 5-05 mg by Seybold MG OR TB24 13:44: mouth 04 daily busPIRone Yes 15mg Take 15 mg Ke lsey [...] Status Commen ts Source Name Name Influenza vaccine, 2022-10-09 Completed Joy Guzman quadrivalent, 00:00:00 - External adjuvanted Influenza vaccine, 2022-10-09 Completed Joy Guzman quadrivalent, 00:00:00 - External adjuvanted Influenza Virus 2022-09-06 Completed Joy Kothari ybold Vaccine, 00:00:00 - External Quadrivalent, High Dose, Age 65 And Up Pneumococcal Vaccine, 2022-09-06 Completed Ge johnson Seybold Polysaccharide 00:00:00 - External Influenza Virus 2022-09-06 Completed Joy Kothari ybold Vaccine, 00:00:00 - External Quadrivalent, High Dose, Age 65 And Up Pneumococcal Vaccine, 2022-09-06 Completed Ge johnson Seybold Polysaccharide 00:00:00 - External Influenza Virus 2022-09-06 Completed Joy duttaold Vaccine, 00:00:00 - External Quadrivalent, High Dose, Age 65 And Up Pneumococcal Vaccine, 2022-09-06 Completed Ge johnson Seybold Polysaccharide 00:00:00 - External Influenza Virus 2022-09-06 Completed Joy Kothari ybold Vaccine, 00:00:00 - External Quadrivalent, High Dose, Age 65 And Up Pneumococcal Vaccine, 2022-09-06 Completed Ge kothariy Seybold Polysaccharide 00:00:00 - External Vital Signs Vital Name Observation Time Observation Value Comments Source Systolic blood 2022-10-12 21:03:00 80 mm[Hg] Joy Seybold - pressure External Diastolic blood 2022-10-12 21:03:00 54 mm[Hg] Gese y Seybold - pressure External Heart rate 2022-10-12 21:03:00 84 /min Joy osmanbold - External Oxygen saturation in 2022-10-12 21:03:00 97 /min Joy Guzman - Arterial blood by External Pulse oximetry Body temperature 2022-10-12 19:54:00 36.67 Yamileth Lexus osman Seybold - External Respiratory rate 2022-10-12 19:54:00 16 /min Lexus osman Seybold - External Body height 2022-10-12 19:54:00 182.9 cm Joy Ratliff eybold - External Body weight 2022-10-12 19:54:00 72.576 kg Joy Ratliff eybold - External BMI 2022-10-12 19:54:00 21.70 kg/m2 Joy Ratliff eybold - External Systolic blood 2022-09-29 16:31:00 128 mm[Hg] Joy Seybold - pressure External Diastolic blood 2022-09-29 16:31:00 75 mm[Hg] Gese y Seybold - pressure External Heart rate 2022-09-29 16:31:00 81 /min Joy Ratliff eybold - External Body temperature 2022-09-29 16:31:00 36.06 Yamileth Lexus ey Seybold - External Respiratory rate 2022-09-29 16:31:00 14 /min Lexus ey Seybold - External Body height 2022-09-29 16:31:00 182.9 cm oJy Ratliff eybold - External Body weight 2022-09-29 16:31:00 73.936 kg Joy Ratliff eybold - External BMI 2022-09-29 16:31:00 22.11 kg/m2 Joy S eybold - External Oxygen saturation in 2022-09-29 16:31:00 99 /min Joy Seybold - Arterial blood by [...] Respiratory rate 2022-09-06 16:09:00 21 /min Lexus ey Seybold - External Body height 2022-09-06 16:09:00 182.9 cm Joy S eybold - External Body weight 2022-09-06 16:09:00 75.751 kg Joy S eybold - External BMI 2022-09-06 16:09:00 22.65 kg/m2 Joy S eybold - External Systolic blood 2022-02-23 18:35:00 132 mm[Hg] Joy Seybold pressure Diastolic blood 2022-02-23 18:35:00 83 mm[Hg] Kelse y Seybold pressure Heart rate 2022-02-23 18:35:00 60 /min Joy S eybold Body temperature 2022-02-23 18:35:00 36.83 Yamileth Lexus ey Seybold Respiratory rate 2022-02-23 18:35:00 14 /min Lexus ey Seybold Body height 2022-02-23 18:35:00 182.9 cm Joy S eybold Body weight 2022-02-23 18:35:00 77.111 kg Joy S eybold BMI 2022-02-23 18:35:00 23.06 kg/m2 Joy S eybold Oxygen saturation in 2022-02-23 18:35:00 98 /min Joy Seybold Arterial blood by Pulse oximetry Procedures Procedure Date / Time Performed Performing Clinician Jacquelyn MERCADO 2022-09-06 17:22:40 Sweta Rosaso ld - External Encounters Start End Encounter Admission Attending Care Care Encounter Source Date/Time Date/Time Type Type Clinicians Facility Department ID 2022-10-13 2022-10-13 Outpatient JOY ROSAS [id number] Joy 11:15:00 11:15:00 SWETA Seybol d 2022-10-13 2022-10-13 Outpatient JOY HAIR [id number] Joy 10:00:00 10:00:00 WALID Seybol d 2022-10-13 2022-10-13 Outpatient JOY HAIR [id number] Joy 00:00:00 00:00:00 WALID Seybol d 2022-10-13 2022-10-13 Outpatient RADIOLOGY, JOY ZEE [id number] Joy 00:00:00 00:00:00 DEPT Seybol d 2022-10-13 2022-10-13 Outpatient JOY ROSAS [id number] Joy 00:00:00 00:00:00 SWETA Seybol d 2022-10-12 2022-10-12 Outpatient JOY ROSAS [id number] Joy 14:00:00 14:00:00 SWETA Seybol d 2022-10-12 2022-10-12 Outpatient JOY ROSAS [id number] Joy 10:30:00 10:30:00 SWETA Seybol d 2022-10-11 2022-10-11 Outpatient JOY ZEE [id number] Joy 11:30:00 11:30:00 Seybol d 2022-10-11 2022-10-11 Outpatient JOY ZEE [id number] Joy 10:30:00 10:30:00 Seybol d 2022-10-10 2022-10-10 Outpatient JOY ROSAS [id number] Joy 00:00:00 00:00:00 SWETA Seybol d 2022-10-09 2022-10-09 Outpatient SUZAN YOST [id number] Joy 13:30:00 13:30:00 Seybol d 2022-10-062022-10-06 Outpatient PREZAS, JOY ZEE [id number] Joy 00:00:00 00:00:00 SWETA Seybol d 2022-10-05 2022-10-05 Outpatient PREZAS, JOY ZEE [id number] Joy 11:00:00 11:00:00 SWETA Seybol d 2022-10-04 2022-10-04 Outpatient JOY ZEE [id number] Joy 09:30:00 09:30:00 Seybol d 2022-10-04 2022-10-04 Outpatient PREZAS, JOY ZEE [id number] Joy 00:00:00 00:00:00 SWETA Seybol d 2022-10-04 2022-10-04 Outpatient PREZAS, JOY EZE [id number] Joy 00:00:00 00:00:00 SWETA Seybol d 2022-10-04 2022-10-04 Outpatient CONFERENCE, JOY ZEE [id number] Joy 00:00:00 00:00:00 LDC Seybol d 2022-10-02 2022-10-02 Outpatient LAB90 JOY ZEE [id number] Joy 09:45:00 09:45:00 Seybol d 2022-10-02 2022-10-02 Outpatient PREZAS, JOY ZEE [id number] Joy 00:00:00 00:00:00 SWETA Seybol d 2022-10-02 2022-10-02 Outpatient JOY ZEE [id number] Joy 00:00:00 00:00:00 Seybol d 2022-09-29 2022-09-29 Outpatient LAB90 JOY ZEE [id number] Joy 11:15:00 11:15:00 Seybol d 2022-09-29 2022-09-29 Outpatient PREZAS, JOY ZEE [id number] Joy 10:30:00 10:30:00 SWETA Seybol d 2022-09-29 2022-09-29 Outpatient PREZAS, JOY ZEE [id number] Joy 00:00:00 00:00:00 SWETA Seybol d 2022-09-28 2022-09-28 Outpatient JOY ZEE [id number] Joy 13:15:00 13:15:00 Seybol d 2022-09-28 2022-09-28 Outpatient LAB47 JOY JOY [id number] Joy 11:15:00 11:15:00 Seybol d 2022-09-28 2022-09-28 Outpatient JOY ZEE [id number] Joy 10:30:00 10:30:00 Seybol d 2022-09-22 2022-09-22 Outpatient JOY ZEE [id number] Joy 13:15:00 13:15:00 Seybol d 2022-09-22 2022-09-22 Outpatient JOY ZEE [id number] Joy 11:00:00 11:00:00 Seybol d 2022-09-22 2022-09-22 Outpatient PREZAS, JOY ZEE [id number] Joy 00:00:00 00:00:00 SWETA Seybol d 2022-09-22 2022-09-22 Outpatient PREZAS, JOY ZEE [id number] Joy 00:00:00 00:00:00 SWETA Seybol d 2022-09-07 2022-09-07 Outpatient PREZASJOY [id number] Joy 00:00:00 00:00:00 SWETA Seybol d 2022-09-06 2022-09-06 Outpatient LAB90 JOY ZEE [id number] Jyo 11:45:00 11:45:00 Seybol d 2022-09-06 2022-09-06 Outpatient PREZASJOY [id number] Joy 10:45:00 10:45:00 SWETA Seybol d 2022-08-30 2022-08-30 Outpatient PREZASJOY [id number] Joy 13:45:00 13:45:00 SWETA Seybol d 2022-08-28 2022-08-28 Outpatient PREZASJOY [id number] Joy 09:15:00 09:15:00 SWETA Seybol d 2022-08-25 2022-08-25 Outpatient PREZASJOY [id number] Joy 14:15:00 14:15:00 SWETA Seybol d 2022-08-23 2022-08-23 Outpatient PREZAS, JOY ZEE [id number] Joy 00:00:00 00:00:00 SWETA Seybol d 2022-07-31 2022-07-31 Outpatient PREZAS, JOY ZEE [id number] Joy 00:00:00 00:00:00 SWETA Seybol d 2022-07-18 2022-07-18 Outpatient PREZAS, JOY ZEE [id number] Joy 14:00:00 14:00:00 SWETA Seybol d 2022-06-22 2022-06-22 Outpatient PREZAS, JOY ZEE [id number] Joy 00:00:00 00:00:00 SWETA Seybol d 2022-05-26 2022-05-26 Outpatient PREZAS, JOY ZEE [id number] Joy 13:30:00 13:30:00 SWETA Seybol d 2022-04-19 2022-04-19 Office PrezasSuzan [id number] Joy 14:45:00 15:15:00 [id number] 2022-04-18 2022-04-18 Outpatient PREZAS, JOY ZEE [id number] Joy 09:45:00 09:45:00 SWETA Seybol d 2022-04-18 2022-04-18 Outpatient PREZAS, JOY ZEE [id number] Joy 00:00:00 00:00:00 SWETA Seybol d 2022-03-29 2022-03-29 Outpatient PREZAS, JOY ZEE [id number] Joy 00:00:00 00:00:00 SWETA Seybol d 2022-03-28 2022-03-28 Outpatient PREZAS, JOY ZEE [id number] Joy 00:00:00 00:00:00 SWETA Seybol d 2022-03-08 2022-03-08 Outpatient PREZAS, JOY ZEE [id number] Joy 00:00:00 00:00:00 SWETA Seybol d 2022-03-07 2022-03-07 Outpatient LAB90 JOY ZEE [id number] Joy 09:40:00 09:40:00 Seybol d 2022-03-02 2022-03-02 Outpatient PREZAJOY Ratliff [id number] Joy 00:00:00 00:00:00 SWETA Seybol d 2022-02-23 2022-02-23 Office Suzan Rosas [id number] Joy 13:30:00 14:15:00 Visit Sweta Hoyt [id number] Se ybold [id number] 2022-02-23 2022-02-23 Outpatient PREZAEvy, JOY ZEE [id number] Joy 00:00:00 00:00:00 SWETA Seybol d Results Test Description Test Time Test Comments Results Result Comments Source [employer]ANTA[facility] 2022-09-06 17:33:02 Test Item Value Reference Range Interpretation Comme nts [facility] left side (test code See_Comment L [Automated message] The system = 08956-4Q) which generated this result transmitted ref erence range: 1.40 - 0.90 NA. The reference range was not u sed to interpret this result as normal/abnormal. [employer] right side (test See_Comment P resentation Factors: code = 11583-4G) Hypertensio n, Smoking HistoryExercise Modality: At RestBoth [...] normal/abnormal. Lab Interpretation (test code Abnormal = 04444-0) Joy Guzman - External
[2022-10-16 01:01] LABS: Absolute Lymphocytes (CBC) 0.7 K/uL (0.7-4.9); Lymphocytes % 10.7 % (15.3-44.8); MCV 93.5 fL (80-100); MPV 6.8 fL (7.6-11.3)
[2022-10-16 01:18] LABS: Albumin 2.8 g/dL (3.4-5.0); Bilirubin Total 0.2 mg/dL (0.2-1.0); Magnesium 1.9 mg/dL (1.6-2.4); Potassium 4.9 mmol/L (3.5-5.1); Protein, Total 6.3 g/dL (6.4-8.2); Troponin High Sensitivity 12.8 pg/mL (<58.9)
[2022-10-16] MEDS ORDERED: NA CHLORIDE 0.9% 1,000 ML ONE (01:30)
[2022-10-16 02:27] LABS: SARS-CoV-2 Antigen Rapid Res Negative (Negative)
--- NOTE | 2022-10-16 03:12 | ER ---
Nurse's Notes [facility] Name: Tom Braun Age: 77 yrs Sex: Male : 1945 Arrival Date: 10/15/2022 Time: 23:47 Bed 8 Private MD: Diagnosis: Hypotension, unspecified Presentation: 10/15 23:47 Chief complaint: EMS states: pt states he felt weak all day and it just got to where he aa9 almost fainted on the way to the bathroom, last BP 78/54, HR 112, AAXO4. Risk Assessment: Do you want to hurt yourself or someone else? Patient reports no desire to harm self or others. Onset of symptoms was October 15, 2022. Care prior to arrival: IV initiated. 18 GA, in the right forearm, Glucose check: 188. 23:47 Method Of Arrival: EMS: [facility] aa9 23:47 Acuity: ALANNAH 3 aa9 10/16 04:25 Coronavirus screen:. Ebola Screen: No symptoms or risks identified at this time. aa9 Initial Sepsis Screen: Does the patient meet any 2 criteria? No. Patient's initial sepsis screen is negative. Does the patient have a suspected source of infection? No. Patient's initial sepsis screen is negative. Triage Assessment: 10/15 23:49 General: Appears comfortable, slender, Behavior is calm, cooperative, appropriate for aa9 age. Pain: Denies pain. Neuro: Level of Consciousness is awake, alert, obeys commands, Oriented to person, place, time, situation. Cardiovascular: Patient's skin is warm and dry. Respiratory: Airway is patent Respiratory effort is even, unlabored. GI: No signs and/or symptoms were reported involving the gastrointestinal system. GI: Patient currently denies nausea, vomiting. : No signs and/or symptoms were reported regarding the genitourinary system. Derm: Skin is intact, with poor turgor. Musculoskeletal: No signs and/or symptoms reported regarding the musculoskeletal system. Historical: - Allergies: 23:49 No Known Allergies; aa9 - PMHx: 23:49 Bipolar disorder; Cataract; diabetes mellitus; Emphysema; Gastroesophageal reflux aa9 disease; Hypertensive disorder; keratitis; scoliosis; skin cancer; - PSHx: 23:49 Appendectomy; aa9 - Immunization history:: Client reports receiving the 2nd dose of the Covid vaccine. - Social history:: Smoking status: Patient reports the use of cigarette tobacco products, smokes one-half pack cigarettes per day. - Family history:: not pertinent. Screenin:55 Abuse screen: Denies threats or abuse. Denies injuries from another. Nutritional aa9 screening: No deficits noted. Tuberculosis screening: No symptoms or risk factors identified. 10/16 04:25 [facility] ED Fall Risk Assessment (Adult) History of falling in the last 3 months, aa9 including since admission No falls in past 3 months (0 pts) Confusion or Disorientation No (0 pts) Intoxicated or Sedated No (0 pts) Impaired Gait Yes (1 pt) Mobility Assist Device Used No (0 pt) Altered Elimination No (0 pt) Score/Fall Risk Level 0 - 2 = Low Risk Oriented to surroundings, Maintained a safe environment. Assessment: 01:51 Reassessment: Patient appears in no apparent distress at this time. Patient and/or aa9 family updated on plan of care and expected duration. Pain level reassessed. Patient is alert, oriented x 3, equal unlabored respirations, skin warm/dry/pink. Patient denies pain at this time. Vital Signs: 10/15 23:47 BP 118 / 79; Pulse 93; Resp 20 S; Pulse Ox 97% on R/A; Pain 0/10; aa9 23:55 Temp 97.6(O); Weight 74.84 kg (R); Height 6 ft. 0 in. (182.88 cm) (R); aa9 10/16 01:13 BP 100 / 71 Supine; Pulse 72; kl 01:13 BP 98 / 71 Sitting; Pulse 88; kl 01:44 BP 104 / 72; Pulse 78; Resp 20; Pulse Ox 94% on R/A; kl 10/15 23:55 Body Mass Index 22.38 (74.84 kg, 182.88 cm) aa9 ED Course: 10/15 23:47 Patient arrived in ED. aa9 23:47 Darrick Louis MD is Attending Physician. rt 23:49 Triage completed. aa9 23:50 Arm band placed on. aa9 23:56 Patient has correct armband on for positive identification. Placed in gown. Bed in low aa9 position. Call light in reach. Side rails up X2. Client placed on continuous cardiac and pulse oximetry monitoring. NIBP monitoring applied. 10/16 00:28 Chest Single View XRAY In Process Unspecified. EDMS 01:49 SARS RAPID Sent. aa9 03:11 Mary Jo Potts MD is Hospitalizing Provider. rt 04:24 No provider procedures requiring assistance completed. Patient admitted, IV remains in aa9 place. Administered Medications: 01:49 Drug: NS 0.9% 1000 ml Route: IV; Rate: 1 bolus; Site: right forearm; aa9 04:24 Follow up: Response: No adverse reaction; IV Status: Completed infusion; IV Intake: aa9 1000ml Medication: 10/15 23:56 VIS not applicable for this client. aa9 Intake: 10/16 04:24 IV: 1000ml; Total: 1000ml. aa9 Outcome: 03:11 Decision to Hospitalize by Provider. rt 04:25 Condition: stable aa9 04:25 Instructed on the need for admit. 04:43 Admitted to Med/surg accompanied by tech, room 215, with chart, Report called to aa9 krish 04:49 Patient left the ED. aa9 Signatures: Dispatcher [employer] Trish Moore, RN RN Marisela Brown RN RN aa9 Darrick Louis MD MD rt
--- NOTE | 2022-10-16 03:12 | EDPHYS ---
Physician Documentation [facility] Name: Tom Braun Age: 77 yrs Sex: Male : 1945 Arrival Date: 10/15/2022 Time: 23:47 Bed 8 Private MD: ED Physician Darrick Louis HPI: 10/16 01:10 This 77 yrs old Male presents to ER via EMS with complaints of hypotension. rt 01:10 Onset: The symptoms/episode began/occurred today. Severity of symptoms: At their worst rt the symptoms were moderate. Patient with recent diagnosis of metastatic cancer presents to the ED with recurrence of hypotension, patient was seen in the ED several days ago for hypotension that is since resolved. Patient became weak and lightheaded today. Denies other acute complaints at this time, patient's blood pressure was reportedly 70s over 50s by EMS with a heart rate in the 1 teens. Patient denies other acute complaints at this time, states that he feels better when lying down flat. Denies aggravating alleviating factors. Historical: - Allergies: 10/15 23:49 No Known Allergies; aa9 - PMHx: 23:49 Bipolar disorder; Cataract; diabetes mellitus; Emphysema; Gastroesophageal reflux aa9 disease; Hypertensive disorder; keratitis; scoliosis; skin cancer; - PSHx: 23:49 Appendectomy; aa9 - Immunization history:: Client reports receiving the 2nd dose of the Covid vaccine. - Social history:: Smoking status: Patient reports the use of cigarette tobacco products, smokes one-half pack cigarettes per day. - Family history:: not pertinent. ROS: 10/16 01:10 Eyes: Negative for injury, pain, redness, and discharge, ENT: Negative for injury, rt pain, and discharge, Cardiovascular: Negative for chest pain, palpitations, and edema, Respiratory: Negative for shortness of breath, cough, wheezing, and pleuritic chest pain, Abdomen/GI: Negative for abdominal pain, nausea, vomiting, diarrhea, and constipation, MS/Extremity: Negative for injury and deformity, Skin: Negative for injury, rash, and discoloration, Psych: Negative for depression, anxiety, suicide ideation, homicidal ideation, and hallucinations. Constitutional: Positive for poor PO intake, weakness. Neuro: Positive for near syncope, Negative for altered mental status. Exam: 01:10 Head/Face: Normocephalic, atraumatic. Eyes: Pupils equal round and reactive to light, rt extra-ocular motions intact. Lids and lashes normal. Conjunctiva and sclera are non-icteric and not injected. Cornea within normal limits. Periorbital areas with no swelling, redness, or edema. ENT: Nares patent. No nasal discharge, no septal abnormalities noted. Tympanic membranes are normal and external auditory canals are clear. Oropharynx with no redness, swelling, or masses, exudates, or evidence of obstruction, uvula midline. Mucous membranes moist. Neck: Trachea midline, no thyromegaly or masses palpated, and no cervical lymphadenopathy. Supple, full range of motion without nuchal rigidity, or vertebral point tenderness. No Meningismus. Chest/axilla: Normal chest wall appearance and motion. Nontender with no deformity. No lesions are appreciated. Cardiovascular: Regular rate and rhythm with a normal S1 and S2. No gallops, murmurs, or rubs. Normal PMI, no JVD. No pulse deficits. Respiratory: Lungs have equal breath sounds bilaterally, clear to auscultation and percussion. No rales, rhonchi or wheezes noted. No increased work of breathing, no retractions or nasal flaring. Abdomen/GI: Soft, non-tender, with normal bowel sounds. No distension or tympany. No guarding or rebound. No evidence of tenderness throughout. Male : Normal genitalia with no discharge or lesions. Skin: Warm, dry with normal turgor. Normal color with no rashes, no lesions, and no evidence of cellulitis. MS/ Extremity: Pulses equal, no cyanosis. Neurovascular intact. Full, normal range of motion. Neuro: Awake and alert, GCS 15, oriented to person, place, time, and situation. Cranial nerves II-XII grossly intact. Motor strength 5/5 in all extremities. Sensory grossly intact. Cerebellar exam normal. Normal gait. Psych: Awake, alert, with orientation to person, place and time. Behavior, mood, and affect are within normal limits. 01:10 Constitutional: The patient appears Cachectic, chronically ill-appearing 02:00 ECG was reviewed by the Attending Physician. rt Vital Signs: 10/15 23:47 BP 118 / 79; Pulse 93; Resp 20 S; Pulse Ox 97% on R/A; Pain 0/10; aa9 23:55 Temp 97.6(O); Weight 74.84 kg (R); Height 6 ft. 0 in. (182.88 cm) (R); aa9 10/16 01:13 BP 100 / 71 Supine; Pulse 72; kl 01:13 BP 98 / 71 Sitting; Pulse 88; kl 01:44 BP 104 / 72; Pulse 78; Resp 20; Pulse Ox 94% on R/A; kl 10/15 23:55 Body Mass Index 22.38 (74.84 kg, 182.88 cm) aa9 MDM: 10/15 23:59 Patient medically screened. rt 10/16 03:11 Differential Diagnosis altered mental status, sepsis, hypotension. Data reviewed: vital rt signs, nurses notes, old medical records, lab test result(s), EKG, radiologic studies. 10/16 00:12 Order name: CBC with Diff; Complete Time: 01:36 rt 10/16 00:12 Order name: CMP; Complete Time: 01:36 rt 10/16 00:12 Order name: Magnesium; Complete Time: 01:36 rt 10/16 00:12 Order name: Troponin High Sensitivity; Complete Time: 01:36 rt 10/16 00:12 Order name: UA MICROSCOPIC; Complete Time: 04:35 rt 10/16 00:12 Order name: Lactate w/ 2H reflex if indic.; Complete Time: 01:57 rt 10/16 00:12 Order name: EKG; Complete Time: 00:13 rt 10/16 00:12 Order name: EKG - Nurse/Tech; Complete Time: 01:49 rt 10/16 00:12 Order name: Urine Dipstick-Ancillary (obtain specimen); Complete Time: 04:10 rt 10/16 00:12 Order name: Chest Single View XRAY rt 10/16 00:12 Order name: Blood Culture Adult (2) rt 10/16 01:03 Order name: SARS RAPID; Complete Time: 02:59 la1 10/16 04:01 Order name: Urine Dipstick-Ancillary; Complete Time: 04:35 EDMS 10/16 00:12 Order name: Orthostatics; Complete Time: 01:14 rt EC:00 Rate is 79 beats/min. Rhythm is regular, Normal Sinus Rhythm with Occasional PVCs, Left rt bundle branch block. ME interval is normal. QT interval is normal. No Q waves. Administered Medications: 01:49 Drug: NS 0.9% 1000 ml Route: IV; Rate: 1 bolus; Site: right forearm; aa9 04:24 Follow up: Response: No adverse reaction; IV Status: Completed infusion; IV Intake: aa9 1000ml Disposition Summary: 10/16/22 03:11 Hospitalization Ordered Hospitalization Status: Inpatient Admission rt Provider: Mary Jo Potts rt Location: Telemetry/[facility] (Inpatient) rt Condition: Fair rt Problem: an ongoing problem rt Symptoms: have improved rt Bed/Room Type: Standard rt Room Assignment: 215(10/16/22 04:14) cg Diagnosis - Hypotension, unspecified rt Forms: - Medication Reconciliation Form rt - SBAR form rt Signatures: Dispatcher [employer] EDWeston Sung FNP-C FNP-Cla1 Marline Smith RN RN cg Marisela Stokes RN RN aa9 Darrick Louis MD MD rt Corrections: (The following items were deleted from the chart) 04:14 03:11 rt cg
--- NOTE | 2022-10-16 03:16 | P.HP ---
Certification for Inpatient Patient admitted to: Observation With expected LOS: <2 Midnights Patient will require the following post-hospital care: None Practitioner: I am a practitioner with admitting privileges, knowledge of patient current condition, hospital course, and medical plan of care. Services: Services provided to patient in accordance with Admission requirements found in Title 42 Section 412.3 of the Code of Federal Regulations Patient History Date of Service: 10/16/22 Reason for admission: Weakness, hypotension History of Present Illness: 77-year-old male with history of diabetes mellitus type 2not insulin-dependent, BPD, emphysema, hypertension, GERD, metastatic cancer of unknown origin presents emergency department for low blood pressure, weakness. He was seen in the emergency department on the of this month for similar complaint, his blood pressure improved with IV fluids and he was feeling well so he was discharged h ome. Family reports he has been very weak the past 1 to 2 weeks at home difficulty with ambulation requiring more more assistance than previous also noted his blood pressure has been quite labile today prior to coming to the emergency department he was reportedly in the 70s systolic measured by EMS. Patient was given IV fluids his blood pressure responded but he still feeling weak, more tired than usual. His labs were significant for hemoglobin of 9.3 hematocrit 28 glucose 131 AST 100 ALT 95 alk phos 295. Chest x-ray was obtained was negative for any acute findings. ED provider wishes to admit under observation for hypotension, weakness. - Past Medical/Surgical History -: [id number] diabetes -: Hypertension -: BPD -: Metastatic cancer -: Appendectomy Psychosocial/ Personal History: Patient was at home alone but has been staying with his ex- the past few days as he is requiring much more assistance. - Family History Family History: Reviewed- Non-Contributory - Social History Smoking Status: Current every day smoker Counseled patient to stop smoking for: less than 10 minutes Smoking therapy provided: Yes Alcohol use: No CD- Drugs: No Caffeine use: Yes Place of Residence: Home Review of Systems 10-point ROS is otherwise unremarkable General: Weakness, Malaise Physical Examination - Physical Exam General: Alert, In no apparent distress, Oriented x3 HEENT: Atraumatic, PERRLA, Mucous membr. moist/pink, EOMI, Sclerae nonicteric Neck: Supple, 2+ carotid pulse no bruit, No LAD, Without JVD or thyroid abnormality Respiratory: Clear to auscultation bilaterally, Normal air movement Cardiovascular: Regular rate/rhythm, Normal S1 S2 Capillary refill: <2 Seconds Gastrointestinal: Normal bowel sounds, No tenderness Musculoskeletal: No tenderness Integumentary: No rashes Neurological: Normal speech, Normal strength at 5/5 x4 extr, Normal tone, Normal affect - Studies Laboratory Data (last 24 hrs) 10/16/22 00:35: Sodium 135 L, Potassium 4.9, BUN 22 H, Creatinine 0.98, Glucose 131 H, Magnesium 1.9, Total Bilirubin 0.2, AST 100 H, ALT 95 H, Alkaline Phosphatase 295 H 10/16/22 00:35: WBC 6.20, Hgb 9.3 L, Hct 28.0 L, Plt Count 224 Assessment and Plan - Plan Assessment: Hypotension/orthostatic hypotension Deconditioning Metastatic cancerunknown source Diabetes mellitus type [id number] Hypertensioncurrently with hypotension Plan: Hypotension/orthostatic hypotension: Continue gentle IV fluids, repeat orthostatics this morning. He has been holding his carvedilol at home, no other obvious medications contributing to hypotension/orthostatic hypotension. We will have patient also evaluated by physical therapy. Deconditioning: PT consult in place Metastatic cancerunknown source: Patient aware of metastatic cancer diagnosis known lung mass, spread to bone, pancreas, liver, lymph nodes. They are planning to have a biopsy performed early next month of the liver mass. Continue outpatient work-up. Diabetes mellitus type [id number]: Riss Hypertensioncurrently with hypotension: Hold carvedilol, continue fluids. DVT PPX: Lovenox Code status: Full Discharge Plan: Home Plan to discharge in: 24 Hours - Advance Directives Does patient have a Living Will: No Does patient have a Durable POA for Healthcare: No - Code Status/Comfort Care Code Status Assessed: Yes (Full code) Time Spent Managing Pts Care (In Minutes): 55
[2022-10-16 04:01] LABS: Urine Blood Negative (Negative); Urine Glucose Negative (Negative); Urine Protein Negative (Negative); Urine Specific Gravity 1.015 (1.005-1.030)
[2022-10-16 04:25] LABS: Urine Bacteria <20 /HPF (<20); Urine RBC None Seen /HPF (None Seen)
[2022-10-16] MEDS ORDERED: ONDANSETRON 4 MG/2 ML VIAL IV PRN (04:50)
[2022-10-16] MEDS: NA CHLORIDE 0.9% 1,000 ML IV SCH ×2 (05:35→18:38)
[2022-10-16 05:43] VITALS: BMI 21.5
[2022-10-16] MEDS: INSULIN -REGULAR HUMAN 50 UNIT/0.5 ML ML SQ SCH ×4 (07:30→21:00)
[2022-10-16] MEDS: ENOXAPARIN 40 MG/0.4 ML SQ SCH (09:04)
[2022-10-16 10:23] VITALS: O2SAT 96
--- NOTE | 2022-10-16 14:24 | RAD REPORT ---
EXAM DESCRIPTION: XR CHEST 1 VIEW CLINICAL HISTORY: Hypotension COMPARISON: None. TECHNIQUE: XR CHEST 1 VIEW 10/16/2022 12:12 AM REPAIRER FINDINGS: Cardiac silhouette is normal in size. There is a highly suspicious 3.5 cm mass in the left upper lobe. There is no pleural effusion. There is no pneumothorax. There are no acute osseous findi ngs. IMPRESSION: Left upper lobe pulmonary mass. Recommend CT. Electronically signed by: Lai Peralta MD 10/16/2022 12:40 AM REPAIRER Due to temporary technical issues with the PACS/Fluency reporting system, reports are being signed by the in house radiologists without review as a courtesy to insure prompt reporting. The interpreting radiologist is fully responsible for the content of the report.
--- NOTE | 2022-10-16 16:03 | EKG ---
Test Date: 2022-10-16 Test Time: 01:44:49 Analytics Architect: JAYLENE MEASUREMENT RESULTS: Intervals: Rate: 79 IL: 178 QRSD: 128 QT: 418 QTc: 479 Gatzke: P: 82 IL: 178 QRS: -73 T: 88 INTERPRETIVE STATEMENTS: Sinus rhythm with occasional premature ventricular complexes Left axis deviation Left bundle branch block Abnormal ECG Compared to ECG 10/12/2022 15:46:04 Ventricular premature complex(es) now present Left bundle-branch block now present Myocardial infarct finding no longer present Electronically Signed On 10-16-22 16:03:04 [employer] ASSEMBLY MACHINE OPERATOR by Kenan Pearson
[2022-10-16] MEDS ORDERED: QUETIAPINE 100MG TAB PO SCH (20:00)
[2022-10-16] MEDS: carvediloL 12.5 MG TAB PO SCH (21:17)
[2022-10-17] MEDS: carvediloL 12.5 MG TAB PO SCH (06:02)
[2022-10-17 06:44] LABS: Protime INR 1.06
[2022-10-17 06:50] LABS: RBC Red Blood Cell Count 3.1 M/uL (4.33-5.43)
[2022-10-17 06:51] LABS: Absolute Lymphocytes (CBC) 0.6 K/uL (0.7-4.9); Lymphocytes % 9.2 % (15.3-44.8); MCV 92.3 fL (80-100); MPV 7.1 fL (7.6-11.3); RBC Red Blood Cell Count 3.14 M/uL (4.33-5.43)
[2022-10-17 07:16] LABS: Albumin 2.6 g/dL (3.4-5.0); Bilirubin Total 0.3 mg/dL (0.2-1.0); Potassium 4.7 mmol/L (3.5-5.1)
[2022-10-17] MEDS: INSULIN -REGULAR HUMAN 50 UNIT/0.5 ML ML SQ SCH (07:30)
[2022-10-17 08:49] LABS: Folic Acid, (Folate) 13.7 ng/mL (3.1-17.5); Magnesium 1.7 mg/dL (1.6-2.4); Thyroid Stimulating Hormone 1.7 uIU/mL (0.358-3.740)
[2022-10-17] MEDS: ENOXAPARIN 40 MG/0.4 ML SQ SCH (09:08)
[2022-10-17] MEDS ORDERED: SOD FERRIC GLUC COMPLX/SUCROSE 125 MG in NA CHLORIDE 0.9% 100 ML IV SCH (11:00)
[2022-10-17 12:04] VITALS: BP 146/79; TEMP 97.4
== END 2022-10-17 13:25 | disposition home or self-care (01) ==
LOC: ER 23:42 → ERHOLD 10-16 03:07 → 2ND 10-16 04:27
PROVIDERS: ADMIT Hospitalist; ATTEND Hospitalist
DX: I95.9 Hypotension, unspecified (principal); R53.1 Weakness; E11.9 Type 2 diabetes mellitus without complications; I10 Essential (primary) hypertension; C79.9 Secondary malignant neoplasm of unspecified site; C79.51 Secondary malignant neoplasm of bone; C78.7 Secondary malignant neoplasm of liver and intrahepatic bile duct; C77.2 Secondary and unspecified malignant neoplasm of intra-abdominal lymph nodes
CPT/HCPCS: 36415; 71045; 80053; 81003; 81015; 82607; 82746; 82947; 83036; 83540; 83605; 83735; 83880; 84439; 84443; 84484; 85025; 85044; 85610; 85730; 87040; 87811; 93005; 96360; 96361; 97116; 97161; 97530; 99285; G0378; J1650; J2916; J7030

== ENCOUNTER 2022-10-24 09:03 | Day surgery (SDC) | payer OTHER ==
[2022-10-24] MEDS ORDERED: NA CHLORIDE 0.9% 1,000 ML ONE (09:40)
[2022-10-24 10:08] VITALS: BMI 22.4
[2022-10-24] MEDS ORDERED: MIDAZOLAM HCL 2 MG/2 ML INJ ONE (10:21)
[2022-10-24] MEDS ORDERED: FENTANYL CITR 100 MCG/2 ML ONE (10:21)
[2022-10-24] MEDS ORDERED: FLUMAZENIL 0.1 MG/ML (5 mL VIAL) IV ONE (10:21)
[2022-10-24] MEDS ORDERED: NALOXONE 0.4 MG/ML VIAL ONE (10:21)
--- NOTE | 2022-10-24 12:37 | RAD REPORT ---
EXAM DESCRIPTION: US - Liver Biopsy Procedure - 10/24/2022 10:53 am CLINICAL HISTORY: Liver mass TECHNIQUE: Risks, benefits and alternatives to the procedure were explained to the patient and infor med consent obtained. Skin, subcutaneous tissues and hepatic capsule were anesthetize with Lidocaine. Under sonographic alexus dance a 17 gauge needle was placed a 3 centimeter lesion within the medial segment left lobe of the l iver. Through this an 18 gauge needle placed. Three 2 centimeter core specimens were obtained and put in formalin and given to pathology. Post biopsy images do not demonstrate a hematoma. Patient experienced no immediate complication. Patient was given 2 milligrams Versed said and 50 micrograms fentanyl intravenously. Vital signs raciel tored. Conscious sedation performed by the nurse in attendance for approximately 40 minutes. IMPRESSION: Core biopsies of a hepatic lesion
[2022-10-24 14:04] VITALS: BP 154/93; TEMP 96.9; O2SAT 99
== END 2022-10-24 14:05 | disposition home or self-care (01) ==
LOC: DS 09:03
PROVIDERS: ATTEND Internal Medicine
DX: C22.7 Other specified carcinomas of liver (principal)
CPT/HCPCS: 88307; 47000; J2250; J3010; J7030; J2310

== ENCOUNTER 2022-10-24 14:16 | Emergency (ER) | payer OTHER ==
--- OUTSIDE RECORDS SUMMARY | 2022-10-24 14:22 | XMS REPORT | Continuity of Care Document ---
:1945 Author Organization [facility] t Address [address] [place] [address] Care Team Providers Name Role Phone Group, Joy Guzman [facility] Primary Care Physician [phone] SWETA ROSAS Attending Clinician Unavailable CLARISSA MITCHELL Attending Clinician Unavailable RADIOLOGY, DEPT Attending Clinician Unavailable SARAH HAIR Attending Clinician Unavailable RITIKA TULARE Attending Clinician Unavailable CONFERENCE, LDC Attending Clinician Unavailable LAB90 Attending Clinician Unavailable [id number] Attending Clinician Unavailable Sweta Rosas DO Attending Clinician Payers Payer Name Policy Type Policy Number Effective Date Expiration Date Evy MARTI 7 [id number] 2022 00:00:00 PLUS 42 OA Problems Condition Condition Condition Status Onset Resolution Last Treating Co mments Source Name Details Category Date Date Treatment Clinician Date Pancreatic Pancreatic Disease Active 2021-10 K elsey mass mass 2-22 Seybold 00:00: - 00 Externa l Abnormal Abnormal Disease Active 2021-10 Kelse y liver liver 2-22 Seybold ultrasound ultrasound 00:00: - 00 Externa l 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 2-22 Se ybold n n 00:00: - 00 Externa l Abnormal Abnormal Disease Active 2021-[address] scan, CT scan, 2-09 Seybol d chest chest 00:00: - 00 Externa l Mass of Mass of Disease Active 2021-10 Joy left lung left lung 2-09 Seyb old 00:00: - 00 Externa l Elevated Elevated Disease Active 2021-10 Kelse y liver liver 2-09 Seybold function function 00:00: - tests tests 00 Externa l 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 2-09 Seybol d 00:00: - 00 Externa l [...] PVD Disease Active 2021-10 Joy (periphera (periphera 16 Se ybold l vascular l vascular 00:00: - disease) disease) 00 [employer] a l Primary Primary Disease Active Joy [...] Bipolar 1 Bipolar 1 Disease Active Ge johnson disorder disorder 05 Seybol d 00:00: - 00 Externa l 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.] Take 81 mg K elsey MG oral 2-28 by mouth Seybold Chewable 16:16: daily - Tablet 14 Externa l Sildenafil 2021-10 Yes 100mg QD Take 100 Ke lsey Citrate 100 2-28 mg by Seybold MG oral 16:16: mouth - Tablet 14 daily as Externa needed l Multiple 2021-10 Yes 1{each} Take 1 Lexus ey Vitamins-Ir 2-28 each by Seybo ld on 16:16: mouth - (MULTIVITAM 14 daily Externa IN PLUS l IRON ADULT OR) Quetiapine 2021-10 Yes [id number] 200mg Take 1 Joy Fumarate 2-28 tablet Seybold 200 MG oral 00:00: (200 mg - Tablet 00 total) by Externa mouth l nightly Mupirocin 2021-10 Yes [id number] Apply 1 Joy (BACTROBAN) 12-19 applicatio Se ybold 2 % apply 00:00: n - externally 00 topically Exte rna Ointment 2 times l daily Doxycycline 2021-10- Yes [id number] 100mg Take 1 Joy Hyclate 100 12-19-05 capsule Seyb old MG oral 00:00: 05:59 (100 mg - Capsule 00 :00 total) by Externa mouth 2 l times daily for 7 days Mupirocin 2021-10- No [id number] Apply 1 Joy (BACTROBAN) 12-19 applicatio S eybold 2 % apply 00:00: 00:00 n - externally 00 :00 topically Exte rna Ointment 3 times l daily Mupirocin 2021-10- No [id number] Apply 1 Joy (BACTROBAN) 12-19 applicatio S eybold 2 % apply 00:00: 00:00 n - externally 00 :00 topically Exte rna Ointment 2 times l daily Ondansetron 2021-10 Yes 4mg Take 4 mg K elsey HCl 4 MG 2-23 by mouth Seybold oral Tablet 00:00: every 12 - 00 hours as Externa needed l Aspirin 81 2021-10 [...] Lexus ey Vitamins-Ir 2-22 each by Seybo south on 13:59: mouth - (MULTIVITAM 15 daily [...] Lexus ey Vitamins-Ir 2-22 each by Seybo south on 13:59: mouth - (MULTIVITAM 15 daily Externa IN PLUS l IRON ADULT OR) Atorvastati 2021-10 Yes [id number] 80mg Take 1 Joy n Calcium 2-12 tablet (80 Seyb old 80 MG oral 00:00: mg total) - Tablet 00 by mouth Externa daily l Lisinopril 2021-10 Yes [id number] 10mg Take 1 K elsey 10 MG oral 2-12 tablet (10 Sey bold Tablet 00:00: mg total) - 00 by mouth Externa daily l Atorvastati 2021-10 Yes [id number] 80mg Take 1 Joy n Calcium 2-12 tablet (80 Seyb old 80 MG oral 00:00: mg total) - Tablet 00 by mouth Externa daily l Lisinopril 2021-10 Yes [id number] 10mg Take 1 K elsey 10 MG oral 2-12 tablet (10 Sey bold Tablet 00:00: mg total) - 00 by mouth Externa daily l Atorvastati 2021-10- No [id number] 80mg Take 1 Joy n Calcium 2-12 12-28 tablet (80 Sey bold 80 MG oral 00:00: 00:00 mg total) - Tablet 00 :00 by mouth Externa daily l Lisinopril 2021-10- No [id number] 10mg Take 1 Joy 10 MG oral 2-12 12-28 tablet (10 Se ybold Tablet 00:00: 00:00 mg total) - 00 :00 by mouth Externa daily l Multiple 2021-10 [...] 10 g Ke lsey 10 g oral 16 16 by mouth 3 Sey bold Pack 10:16: 00:00 times - 41 :00 daily Externa l Nicotine 2021-10- No 2mg Take 2 mg Ge sey Polacrilex -16 11-16 by mouth Seyb old 2 MG [...] l MCG/ACT inhalation Aerosol Albuterol 2021-10 Yes [id number] 2{puff} Q.25D Inhale 2 Joy HFA 108 (90 0-12 puffs into Se ybold Base) 00:00: the lungs - MCG/ACT IN 00 every 6 [employer] a AERS hours as l needed for wheezing Carvedilol 2021-10 Yes 6.25mg Take 1 Ge sey 6.25 MG 0-12 tablet Seybold oral Tablet 00:00: (6.25 mg - 00 total) by Externa mouth in l the morning and 1 tablet (6.25 mg total) in the evening. Take with meals. Albuterol 2021-10 Yes [id number] 2{puff} Q.25D Inhale 2 Joy HFA 108 (90 0-12 puffs into Se ybold Base) 00:00: the lungs - MCG/ACT IN 00 every 6 [employer] a AERS hours as l needed for wheezing Carvedilol 2021-10 Yes 6.25mg Take 1 Ge sey 6.25 MG 0-12 tablet Seybold oral Tablet 00:00: (6.25 mg - 00 total) by Externa mouth in l the morning and 1 tablet (6.25 mg total) in the evening. Take with meals. Albuterol 2021-10 Yes [id number] 2{puff} Q.25D Inhale 2 Joy HFA 108 (90 0-12 puffs into Se ybold Base) 00:00: the lungs - MCG/ACT IN 00 every 6 [employer] a AERS hours as l needed for wheezing Carvedilol 2021-10 Yes 6.25mg Take 1 Ge sey 6.25 MG 0-12 tablet Seybold oral Tablet 00:00: (6.25 mg - 00 total) by Externa mouth in l the morning and 1 tablet (6.25 mg total) in the evening. Take with meals. Albuterol 2021-10 Yes [id number] 2{puff} Q.25D Inhale 2 Joy HFA 108 (90 0-12 puffs into Se ybold Base) 00:00: the lungs - MCG/ACT IN 00 every 6 [employer] a AERS hours as l needed for wheezing Carvedilol 2021-10 Yes 6.25mg Take 1 Ge sey 6.25 MG 0-12 tablet Seybold oral Tablet 00:00: (6.25 mg - 00 total) by Externa mouth in l the morning and 1 tablet (6.25 mg total) in the evening. Take with meals. Albuterol 2021-10 Yes [id number] 2{puff} Q.25D Inhale 2 Joy HFA 108 (90 0-12 puffs into Se ybold Base) 00:00: the lungs - MCG/ACT IN 00 every 6 [employer] a AERS hours as l needed for wheezing Carvedilol 2021-10- No 6.25mg Take 1 Ke lsey 6.25 MG 0-12 12-28 tablet Seybold oral Tablet 00:00: 00:00 (6.25 mg - 00 :00 total) by Externa mouth in l the morning and 1 tablet (6.25 mg total) in the evening. Take with meals. Famotidine 0 Yes [id number] 20mg Take 1 Joy (PEPCID) 20 9-19 tablet (20 Se ybold MG oral 00:00: mg total) - tablet 00 by mouth 2 Externa times l daily Famotidine 2021-0 Yes [id number] 20mg Take 1 Joy (PEPCID) 20 9-19 tablet (20 Se ybold MG oral 00:00: mg total) - tablet 00 by mouth 2 Externa times l daily Famotidine 2021-0 Yes [id number] 20mg Take 1 Joy (PEPCID) 20 9-19 tablet (20 Se ybold MG oral 00:00: mg total) - tablet 00 by mouth 2 Externa times l daily Famotidine 2021-0 Yes [id number] 20mg Take 1 Joy (PEPCID) 20 9-19 tablet (20 Se ybold MG oral 00:00: mg total) - tablet 00 by mouth 2 Externa times l daily Famotidine 2021-0 Yes [id number] 20mg Take 1 Joy (PEPCID) 20 9-19 tablet (20 Se ybold MG oral 00:00: mg total) - tablet 00 by mouth 2 Externa times l daily Quetiapine 2021-0 Yes [id number] 400mg Take 1 Joy Fumarate 9-01 tablet Seybold 400 MG oral 00:00: (400 mg - Tablet 00 total) by Externa mouth l nightly Quetiapine 2021-0 Yes [id number] 400mg Take 1 Joy Fumarate 9-01 tablet Seybold 400 MG oral 00:00: (400 mg - Tablet 00 total) by Externa mouth l nightly Quetiapine 2021-0 Yes [id number] 400mg Take 1 Joy Fumarate 9-01 tablet Seybold 400 MG oral 00:00: (400 mg - Tablet 00 total) by Externa mouth l nightly Quetiapine 2022-0 Yes [id number] 400mg Take 1 Joy Fumarate 06-22 tablet Seybold 400 MG oral 00:00: (400 mg - Tablet 00 total) by Externa mouth l nightly Quetiapine 0 2021- No [id number] 400mg Take 1 Joy Fumarate 06-22 tablet Seybold 400 MG oral 00:00: 00:00 (400 mg - Tablet 00 :00 total) by Externa mouth l nightly Metformin 2021-0 Yes PLEASE SEE Hugo lsey HCl ER, 05-29 ATTACHED Seybold OSM, [...] DIRECTIONS l Metformin 2021-0 Yes PLEASE SEE Hugo lsey HCl ER, 05-29 ATTACHED Seybold OSM, 500 MG 00:00: FOR - oral TABLET 00 DETAILED Exte rna SR 24 HR DIRECTIONS l Metformin 2021-0 2021- No PLEASE SEE Doug artiey HCl ER, 05-29 ATTACHED Seybold OSM, 500 MG 00:00: 00:00 FOR - oral TABLET 00 :00 DETAILED Exte rna SR 24 HR DIRECTIONS [...] mouth Externa daily l Fluticasone 2021- No [id number] 2{puff} Inhale 2 Joy Propionate 7-19 11-16 [...] External adjuvanted Influenza vaccine, 2022-10-09 Completed Joy Aliceaold quadrivalent, 00:00:00 - External adjuvanted Influenza vaccine, 2022-10-09 Completed Joy Kothariybold quadrivalent, 00:00:00 - External adjuvanted Influenza Virus 2022-09-06 Completed Joy Kothari ybold Vaccine, 00:00:00 - External Quadrivalent, High Dose, Age 65 And Up Pneumococcal Vaccine, 2022-09-06 Completed Ge kothariy Seybold Polysaccharide 00:00:00 - External Influenza Virus 2022-09-06 Completed Joy Kothari ybold Vaccine, 00:00:00 - External Quadrivalent, High Dose, Age 65 And Up Pneumococcal Vaccine, 2022-09-06 Completed Ge kothariy Seybold Polysaccharide 00:00:00 - External Influenza Virus [...] Time Observation Value Comments Source Systolic blood 2022-10-18 22:17:00 102 mm[Hg] Joy Kothariybold - pressure External Diastolic blood 2022-10-18 22:17:00 64 mm[Hg] Steven watts Seybold - pressure External Heart rate 2022-10-18 22:17:00 87 /min Joy Evy osmanbold - External Body temperature 2022-10-18 22:17:00 37.11 Yamileth Lexus osman Seybold - External Respiratory rate 2022-10-18 22:17:00 14 /min Lexus osman Seybold - External Body height 2022-10-18 22:17:00 182.9 cm Joyalex osmanbosouth - External Body weight 2022-10-18 22:17:00 72.576 kg Joy Evy eybold - External BMI 2022-10-18 22:17:00 21.70 kg/m2 Joy Evy osmanbold - External Oxygen saturation in 2022-10-18 22:17:00 95 /min Joy Guzman - Arterial blood by External Pulse oximetry Systolic blood 2022-10-12 21:03:00 80 mm[Hg] Joy Kothariybold - pressure External Diastolic blood 2022-10-12 21:03:00 54 mm[Hg] Gese y Seybold - pressure External Heart rate 2022-10-12 21:03:00 84 /min Joy osmanbold - External Oxygen saturation in 2022-10-12 21:03:00 97 /min Joy Seybold - Arterial blood by External Pulse oximetry Body temperature 2022-10-12 19:54:00 36.67 Yamileth Lexus ey Seybold - External Respiratory rate 2022-10-12 19:54:00 16 /min Lexus ey Seybold - External Body height 2022-10-12 19:54:00 182.9 cm Joy S eybold - External Body weight 2022-10-12 19:54:00 72.576 kg Joy S eybold - External BMI 2022-10-12 19:54:00 21.70 kg/m2 Joy S eybold - External Systolic blood 2022-09-29 16:31:00 128 mm[Hg] Joy Seybold - pressure External Diastolic blood 2022-09-29 16:31:00 75 mm[Hg] Kelse y Seybold - pressure External Heart rate 2022-09-29 16:31:00 81 /min Joy S eybold - External Body temperature 2022-09-29 16:31:00 36.06 Yamileth Lexus ey Seybold - External Respiratory rate 2022-09-29 16:31:00 14 /min Lexus ey Seybold - External Body height 2022-09-29 16:31:00 182.9 cm Joy S eybold - External Body weight 2022-09-29 16:31:00 73.936 kg Joy S eybold - External BMI 2022-09-29 16:31:00 22.11 [...] Body height 2022-09-06 16:09:00 182.9 cm Joy King eybold - External Body weight 2022-09-06 16:09:00 75.751 kg Joy King eybold - External BMI 2022-09-06 16:09:00 22.65 kg/m2 Joy King eybold - External Systolic blood 2022-02-23 18:35:00 132 mm[Hg] Joy Seybold pressure Diastolic blood 2022-02-23 18:35:00 83 mm[Hg] Kelse y Seybold pressure Heart rate 2022-02-23 18:35:00 60 /min Joy King eybold Body temperature 2022-02-23 18:35:00 36.83 Yamileth Lexus ey Seybold Respiratory rate 2022-02-23 18:35:00 14 /min Lexus ey Seybold Body height 2022-02-23 18:35:00 182.9 cm Joy King eybold Body weight 2022-02-23 18:35:00 77.111 kg Joy King eybold BMI 2022-02-23 18:35:00 23.06 kg/m2 Joy osmanbold Oxygen saturation in 2022-02-23 18:35:00 98 /min Joy Thomas Arterial blood by Pulse oximetry Procedures Procedure Date / Time Performed [facility] 17:22:40 Sweta Rosas ld - External Encounters Start End Encounter Admission Attending Care Care Encounter Source Date/Time Date/Time Type Type Clinicians Facility Department ID 2022-11-01 2022-11-01 Outpatient JOY ROSAS [id number] Joy 14:15:00 14:15:00 SWETA Seybol d 2022-10-24 2022-10-24 Outpatient JOY MITCHELL [id number] Joy 00:00:00 00:00:00 CLARISSA Seybol d 2022-10-18 2022-10-18 Outpatient JOY ROSAS [id number] Joy 16:30:00 16:30:00 SWETA Seybol d 2022-10-18 2022-10-18 Outpatient JOY ZEE [id number] Joy 00:00:00 00:00:00 Seybol d 2022-10-17 2022-10-17 Outpatient JOY ZEE [id number] Joy 00:00:00 00:00:00 Seybol d 2022-10-17 2022-10-17 Outpatient PREZAS, JOY ZEE [id number] Joy 00:00:00 00:00:00 SWETA Seybol d 2022-10-17 2022-10-17 Outpatient RADIOLOGY, JOY ZEE [id number] Joy 00:00:00 00:00:00 DEPT Seybol d 2022-10-17 2022-10-17 Outpatient BAAKLINI, JOY ZEE [id number] Joy 00:00:00 00:00:00 WALID Seybol d 2022-10-17 2022-10-17 Outpatient JOY ZEE [id number] Joy 00:00:00 00:00:00 Seybol d 2022-10-13 2022-10-13 Outpatient PREZAS, JOY ZEE [id number] Joy 11:15:00 11:15:00 SWETA Seybol d 2022-10-13 2022-10-13 Outpatient BAAKYAMILEI, JOY ZEE [id number] Joy 10:00:00 10:00:00 WALID Seybol d 2022-10-13 2022-10-13 Outpatient BAAKYAMILEI, JOY ZEE [id number] Joy 00:00:00 00:00:00 WALID Seybol d 2022-10-13 2022-10-13 Outpatient RADIOLOGY, JOY ZEE [id number] Joy 00:00:00 00:00:00 DEPT Seybol d 2022-10-13 2022-10-13 Outpatient PREZAS, JOY ZEE [id number] Joy 00:00:00 00:00:00 SWETA Seybol d 2022-10-12 2022-10-12 Outpatient PREZAS, JOY ZEE [id number] Joy 14:00:00 14:00:00 SWETA Seybol d 2022-10-12 2022-10-12 Outpatient PREZAS, JOY ZEE [id number] Joy 10:30:00 10:30:00 SWETA Seybol d 2022-10-11 2022-10-11 Outpatient JOY ZEE [id number] Joy 11:30:00 11:30:00 Seybol d 2022-10-11 2022-10-11 Outpatient JOY ZEE [id number] Joy 10:30:00 10:30:00 Seybol d 2022-10-10 2022-10-10 Outpatient PREZAS, JOY ZEE [id number] Joy 00:00:00 00:00:00 SWETA Seybol d 2022-10-09 2022-10-09 Outpatient SUZAN YOST [id number] Joy 13:30:00 13:30:00 Seybol d 2022-10-06 2022-10-06 Outpatient PREZAS, JOY ZEE [id number] Joy 00:00:00 00:00:00 SWETA Seybol d 2022-10-05 2022-10-05 Outpatient PREZAS, JOY ZEE [id number] Joy 11:00:00 11:00:00 SWETA Seybol d 2022-10-04 2022-10-04 Outpatient JOY ZEE [id number] Joy 09:30:00 09:30:00 Seybol d 2022-10-04 2022-10-04 Outpatient PREZAS, JOY ZEE [id number] Joy 00:00:00 00:00:00 SWETA Seybol d 2022-10-04 2022-10-04 Outpatient PREZAS, JOY ZEE [id number] Joy 00:00:00 00:00:00 SWETA Seybol d 2022-10-04 2022-10-04 Outpatient CONFERENCEJOY [id number] Joy 00:00:00 00:00:00 LDC Seybol d 2022-10-02 2022-10-02 Outpatient LAB90 JOY ZEE [id number] Joy 09:45:00 09:45:00 Seybol d 2022-10-02 2022-10-02 Outpatient PREZAS, JOY ZEE [id number] Joy 00:00:00 00:00:00 SWETA Seybol d 2022-10-02 2022-10-02 Outpatient JOY ZEE [id number] Joy 00:00:00 00:00:00 Seybol d 2022-09-29 2022-09-29 Outpatient LAB90 JOY ZEE [id number] Joy 11:15:00 11:15:00 Seybol d 2022-09-29 2022-09-29 Outpatient PREZASJOY [id number] Joy 10:30:00 10:30:00 SWETA Seybol d 2022-09-29 2022-09-29 Outpatient PREZASJOY [id number] Joy 00:00:00 00:00:00 SWETA Seybol d 2022-09-28 2022-09-28 Outpatient JOY ZEE [id number] Joy 13:15:00 13:15:00 Seybol d 2022-09-28 2022-09-28 Outpatient LAB47 JOY ZEE [id number] Joy 11:15:00 11:15:00 Seybol d 2022-09-28 2022-09-28 Outpatient JOY ZEE [id number] Joy 10:30:00 10:30:00 Seybol d 2022-09-22 2022-09-22 Outpatient JOY ZEE [id number] Joy 13:15:00 13:15:00 Seybol d 2022-09-22 2022-09-22 Outpatient JOY ZEE [id number] Joy 11:00:00 11:00:00 Seybol d 2022-09-22 2022-09-22 Outpatient PREZASJOY [id number] Joy 00:00:00 00:00:00 SWETA Seybol d 2022-09-22 2022-09-22 Outpatient PREZASJOY [id number] Joy 00:00:00 00:00:00 SWETA Seybol d 2022-09-07 2022-09-07 Outpatient PREZASJOY [id number] Joy 00:00:00 00:00:00 SWETA Seybol d 2022-09-06 2022-09-06 Outpatient LAB90 JOY ZEE [id number] Joy 11:45:00 11:45:00 Seybol d 2022-09-06 2022-09-06 Outpatient PREZAS, JOY ZEE [id number] Joy 10:45:00 10:45:00 SWETA Seybol d 2022-08-30 2022-08-30 Outpatient PREZAS, JOY ZEE [id number] Joy 13:45:00 13:45:00 SWETA Seybol d 2022-08-28 2022-08-28 Outpatient PREZAS, JOY ZEE [id number] Joy 09:15:00 09:15:00 SWETA Seybol d 2022-08-25 2022-08-25 Outpatient PREZAS, JOY ZEE [id number] Joy 14:15:00 14:15:00 SWETA Seybol d 2022-08-23 2022-08-23 Outpatient PREZAS, JOY ZEE [id number] Joy 00:00:00 00:00:00 SWETA Seybol d 2022-07-31 2022-07-31 Outpatient PREZAS, JOY ZEE [id number] Joy 00:00:00 00:00:00 SWETA Seybol d 2022-07-18 2022-07-18 Outpatient PREZAS, JOY ZEE [id number] Joy 14:00:00 14:00:00 SWETA Seybol d 2022-06-22 2022-06-22 Outpatient PREZAS, JOY ZEE [id number] Joy 00:00:00 00:00:00 SWETA Seybol d 2022-05-26 2022-05-26 Outpatient PREZAS, JOY ZEE [id number] Joy 13:30:00 13:30:00 SWETA Seybol d 2022-04-19 2022-04-19 Office Prezas Suzan [id number] Joy 14:45:00 15:15:00 Visit Swetabriseyda Hoyt [id number] Se ybold [id number] 2022-04-18 2022-04-18 Outpatient PREZAS, JOY JOY [id number] Joy 09:45:00 09:45:00 SWETA Seybol d 2022-04-18 2022-04-18 Outpatient PREZAS, JOY ZEE [id number] Joy 00:00:00 00:00:00 SWETA Seybol d 2022-03-29 2022-03-29 Outpatient PREZAS, JOY ZEE [id number] Joy 00:00:00 00:00:00 SWETA Seybol d 2022-03-28 2022-03-28 Outpatient PREZAS, JOY ZEE [id number] Joy 00:00:00 00:00:00 SWETA Seybol d 2022-03-08 2022-03-08 Outpatient PREZAS, JOY ZEE [id number] Joy 00:00:00 00:00:00 SWETA Seybol d 2022-03-07 2022-03-07 Outpatient LAB90 JOY ZEE [id number] Joy 09:40:00 09:40:00 Seybol d 2022-03-02 2022-03-02 Outpatient PREZAS, JOY ZEE [id number] Joy 00:00:00 00:00:00 SWETA Seybol d 2022-02-23 2022-02-23 Office PrezaSuzan king [id number] Joy 13:30:00 14:15:00 [id number] 2022-02-23 2022-02-23 Outpatient PREZAS, JOY ZEE [id number] Joy 00:00:00 00:00:00 SWETA Seybol d Results Test Description Test Time Test Comments Results Result Comments Source [facility] 2022-09-06 17:33:02 Test Item Value Reference Range Interpretation Comme nts [facility] left side (test code See_Comment L [Automated message] The system = 06426-9D) which generated this result transmitted ref erence range: 1.40 - 0.90 NA. The reference range was not u sed to interpret this result as normal/abnormal. CallMDlo right side (test See_Comment P resentation Factors: code = 74345-2I) Hypertensio n, Smoking HistoryExercise Modality: At RestBoth [...] normal/abnormal. Lab Interpretation (test code Abnormal = 22201-0) Joy Guzman - External
[2022-10-24 15:21] LABS: Urine Blood Negative (Negative); Urine Glucose Negative (Negative); Urine Protein Negative (Negative); Urine pH 6.5 (5.0-7.0)
[2022-10-24 15:36] LABS: Absolute Lymphocytes (CBC) 0.6 K/uL (0.7-4.9); Hematocrit 33.1 % (39.6-49.0); MCV 94.1 fL (80-100); MPV 6.8 fL (7.6-11.3); RBC Red Blood Cell Count 3.52 M/uL (4.33-5.43)
[2022-10-24 15:37] LABS: Albumin 3.3 g/dL (3.4-5.0); Bilirubin Total 0.4 mg/dL (0.2-1.0); Potassium 4.8 mmol/L (3.5-5.1); Protein, Total 7.4 g/dL (6.4-8.2)
[2022-10-24] MEDS ORDERED: NA CHLORIDE 0.9% 1,000 ML ONE (15:38)
[2022-10-24 15:48] LABS: Urine Bacteria None Seen /HPF (<20); Urine Crystals Unidentified Few /HPF (None Seen); Urine RBC <5 /HPF (None Seen)
--- NOTE | 2022-10-24 16:49 | RAD REPORT ---
EXAM DESCRIPTION: CTAbdomen Pelvis W Contrast - 10/24/2022 4:31 pm CLINICAL HISTORY: r/o SBO COMPARISON: Liver Biopsy Procedure dated 10/24/2022 TECHNIQUE: CT of the abdomen and pelvis was performed with IV contrast. All CT scans are performed using dose optimization technique as appropriate and may include automated exposure control or mA/KV adjustment according to patient size. FINDINGS: Lower chest: Coronary artery calcifications. Liver: Numerous liver lesions with near complete replacement of the left hepatic lobe and caudate wit h tumor. There are multiple discrete lesions in the right hepatic lobe. Biopsy results are pending. Biliary: No biliary ductal dilatation. Stomach: No significant focal abnormality. Duodenum: No significant focal abnormality. Pancreas: No significant abnormality. Spleen: No significant abnormality. Adrenal: No suspicious lesions. Kidney/ureter: No hydronephrosis. 6 mm stone in lower pole left kidney. Renal cortical thinning. Retroperitoneum: Retroperitoneal lymphadenopathy. Vascular: No aneurysm. Atherosclerosis. Bowel: Moderate colonic stool burden.. Peritoneum: Portacaval lymphadenopathy. Bowel containing left inguinal hernia. Small volume. Hepatic ascites. Bladder: Grossly unremarkable. Reproductive: No adnexal masses. Bones: No acute fracture. Multilevel degenerative changes are present in the spine. Schmorl's node in the superior endplate of L3. 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 Biopsy results are pending. Moderate colonic stool which could indicate constipation the proper clinical setting. No bowel obstru ction identified.
--- NOTE | 2022-10-24 17:11 | EDPHYS ---
Physician Documentation [facility] Name: Tmo Braun Age: 77 yrs Sex: Male : 1945 Arrival Date: 10/24/2022 Time: 14:19 Bed 26 Private MD: Yovany Rosas ED Physician Darrick Louis HPI: 10/24 14:40 This 77 yrs old Male presents to ER via Wheelchair with complaints of Constipation. jh7 14:40 Onset: The symptoms/episode began/occurred 12 day(s) ago. Associated signs and jh7 symptoms: Pertinent positives: abdominal pain, Pertinent negatives: chest pain, fever, shortness of breath, vomiting. 77-year-old male complains of no bowel movements for the past 12 days. The patient's daughter reports the liver biopsy was done today. The patient has a history of liver and lung CA. He reports that he has been on MiraLAX for the past 6 days. Denies nausea, vomiting, or lack of appetite. Reports mild upper abdominal discomfort. Dr. Walsh this is the patient's PCP. No history of abdominal surgery.. Historical: - Allergies: 14:51 No Known Allergies; ap3 - Home Meds: 16:15 Albuterol Inhl [Active]; Aspirin EC Oral [Active]; atorvastatin 80 mg Oral tab em6 [Active]; bupropion HCl 300 mg Oral Tb24 [Active]; carvedilol 6.25 mg Oral tab [Active]; famotidine 20 mg Oral tab [Active]; fluticasone [Active]; lisinopril 10 mg Oral tab [Active]; metformin 500 mg Oral tab [Active]; quetiapine [Active]; sildenafil [Active]; - PMHx: 14:51 Bipolar disorder; Cataract; diabetes mellitus; Emphysema; Gastroesophageal reflux ap3 disease; Hypertensive disorder; keratitis; scoliosis; skin cancer; - PSHx: 14:51 Appendectomy; ap3 - Immunization history:: Client reports receiving the 2nd dose of the Covid vaccine, Flu vaccine is up to date. - Social history:: Smoking status: Patient reports the use of cigarette tobacco products, smokes one-half pack cigarettes per day. ROS: 14:40 Constitutional: Negative for fever, chills, and weight loss, Eyes: Negative for injury, jh7 pain, redness, and discharge, Neck: Negative for injury, pain, and swelling, Cardiovascular: Negative for chest pain, palpitations, and edema, Respiratory: Negative for shortness of breath, cough, wheezing, and pleuritic chest pain, Back: Negative for injury and pain, MS/Extremity: Negative for injury and deformity, Skin: Negative for injury, rash, and discoloration, Neuro: Negative for headache, weakness, numbness, tingling, and seizure. 14:40 Abdomen/GI: Positive for abdominal pain, constipation, Negative for nausea and vomiting, diarrhea, rectal pain, rectal bleeding. 14:40 All other systems are negative. Exam: 14:40 Constitutional: This is a well developed, well nourished patient who is awake, alert, jh7 and in no acute distress. Head/Face: Normocephalic, atraumatic. Eyes: Pupils equal round and reactive to light, extra-ocular motions intact. Lids and lashes normal. Conjunctiva and sclera are non-icteric and not injected. Cornea within normal limits. Periorbital areas with no swelling, redness, or edema. Neck: Trachea midline, no thyromegaly or masses palpated, and no cervical lymphadenopathy. Supple, full range of motion without nuchal rigidity, or vertebral point tenderness. No Meningismus. Cardiovascular: Regular rate and rhythm with a normal S1 and S2. No gallops, murmurs, or rubs. Normal PMI, no JVD. No pulse deficits. Respiratory: Lungs have equal breath sounds bilaterally, clear to auscultation and percussion. No rales, rhonchi or wheezes noted. No increased work of breathing, no retractions or nasal flaring. Back: No spinal tenderness. No costovertebral tenderness. Full range of motion. Skin: Warm, dry with normal turgor. Normal color with no rashes, no lesions, and no evidence of cellulitis. MS/ Extremity: Pulses equal, no cyanosis. Neurovascular intact. Full, normal range of motion. Neuro: Awake and alert, GCS 15, oriented to person, place, time, and situation. Motor strength 5/5 in all extremities. Sensory grossly intact. Normal gait. 14:40 Abdomen/GI: Inspection: abdomen appears normal, Bowel sounds: normal, Palpation: soft, mild abdominal tenderness, in the right upper quadrant and left upper quadrant. Vital Signs: 14:49 BP 139 / 91; Pulse 76; Resp 17; Temp 98.1; Pulse Ox 98% ; Weight 74.84 kg; Height 6 ft. ap3 (182.88 cm); Pain 0/10; 15:30 BP 127 / 92; Pulse 79; Resp 18; Pulse Ox 97% on R/A; db 16:00 BP 148 / 93; Pulse 70; Resp 18; Pulse Ox 99% on R/A; em6 17:20 BP 163 / 94; Pulse 76; Resp 18; Pulse Ox 96% on R/A; em6 14:49 Body Mass Index 22.38 (74.84 kg, 182.88 cm) ap3 Belia Coma Score: 15:30 Eye Response: spontaneous(4). Verbal Response: oriented(5). Motor Response: obeys db commands(6). Total: 15. MDM: 14:45 Patient medically screened. [facility] 17:05 Differential diagnosis: Small bowel obstruction, constipation. Data reviewed: vital [facility] signs, nurses notes, lab test result(s), radiologic studies, CT scan. Data interpreted: Pulse oximetry: is 96 %. Interpretation: normal. Counseling: I had a detailed discussion with the patient and/or guardian regarding: the historical points, exam findings, and any diagnostic results supporting the discharge/admit diagnosis, to return to the emergency department if symptoms worsen or persist or if there are any questions or concerns that arise at home. ED course: Spoke to the patient regarding labwork and nonacute CT results regarding liver cancer. Also informed him that there is no bowel obstruction and that there was a moderate amount of stool in the colon. Gave the patient the option of enema versus lactulose, and he stated he would rather have a dose of lactulose here and be prescribed it for at home. He states that that medication is always worked for him, but the ones he has at home are . If the patient developed severe rectal pain, continued constipation, or any new concerning symptoms, he should return to the ER for further eval.. 10/24 14:51 Order name: CBC with Diff; Complete Time: 15:46 [facility] 10/24 14:51 Order name: CMP; Complete Time: 15:46 [facility] 10/24 14:51 Order name: Lipase; Complete Time: 15:46 [facility] 01/03 14:51 Order name: Urine Microscopic Only; Complete Time: 15:59 [facility] 10/24 14:51 Order name: CT Abd/Pelvis - IV Contrast Only; Complete Time: 17:01 [facility] 10/24 15:22 Order name: Urine Dipstick-Ancillary; Complete Time: 15:30 [facility] 10/24 14:51 Order name: IV Saline Lock; Complete Time: 15:34 [facility] 10/24 14:51 Order name: Labs collected and sent; Complete Time: 15:34 [facility] 10/24 14:51 Order name: Urine Dipstick-Ancillary (obtain specimen); Complete Time: 15:42 [facility] Administered Medications: 15:41 Drug: NS 0.9% 1000 ml Route: IV; Rate: 1 bolus; Site: right antecubital; db 17:21 Follow up: Response: No adverse reaction; IV Status: Completed infusion; IV Intake: em6 1000ml 17:08 Drug: Lactulose 30 grams Volume: 45 ml; Route: PO; em6 17:21 Follow up: Response: No adverse reaction em6 Disposition: 18:18 Co-signature as Attending Physician, Darrick Louis MD I agree with the assessment and rt plan of care. Disposition Summary: 10/24/22 17:10 Discharge Ordered Location: Home [facility] Problem: new [facility] Symptoms: are unchanged [facility] Condition: Stable [facility] Diagnosis - Constipation [facility] Followup: [facility] - With: Yovany Rosas DO - When: 2 - 3 days - Reason: Recheck today's complaints Discharge Instructions: - Discharge Summary Sheet [facility] - Constipation, Adult [facility] Forms: - Medication Reconciliation Form [facility] - Thank You Letter [facility] Prescriptions: - Lactulose 10 gram/15 mL Oral Solution - take 30 milliliters by ORAL route once daily; 300 milliliter; Refills: 0, jh7 Product Selection Permitted Signatures: Dispatcher [facility] Rachel Chen RN RN ap3 Montserrat Ontiveros FNP [employer] 7 Alice Guadalupe RN RN em6 Garima Pathak RN RN db Darrick Louis MD MD rt
--- NOTE | 2022-10-24 17:11 | ER ---
Nurse's Notes [facility] Name: Tom Braun Age: 77 yrs Sex: Male : 1945 Arrival Date: 10/24/2022 Time: 14:19 Bed 26 Private MD: Yovany Rosas Diagnosis: Constipation Presentation: 10/24 14:49 Chief complaint: Patient states: he hasn't had a bowel movement in 12 days. patient has ap3 been using stool softeners for 6 days with no success. Coronavirus screen: At this time, the client does not indicate any symptoms associated with coronavirus-19. Ebola Screen: No symptoms or risks identified at this time. Initial Sepsis Screen: Does the patient meet any 2 criteria? No. Patient's initial sepsis screen is negative. Does the patient have a suspected source of infection? No. Patient's initial sepsis screen is negative. Risk Assessment: Do you want to hurt yourself or someone else? Patient reports no desire to harm self or others. Onset of symptoms was October 24, 2022. 14:49 Method Of Arrival: Wheelchair ap3 14:49 Acuity: ALANNAH 3 ap3 14:52 Chief complaint: Patient states: patient had liver biopsy today. ap3 Triage Assessment: 14:52 General: Appears uncomfortable, Behavior is calm, cooperative. Pain: Complains of pain ap3 in right upper quadrant and left upper quadrant. Neuro: Level of Consciousness is awake, alert, obeys commands, Oriented to person, place, time, situation. Cardiovascular: Patient's skin is warm and dry. Respiratory: Airway is patent Respiratory effort is even, unlabored. GI: Reports constipation. Historical: - Allergies: 14:51 No Known Allergies; ap3 - Home Meds: 16:15 Albuterol Inhl [Active]; Aspirin EC Oral [Active]; atorvastatin 80 mg Oral tab em6 [Active]; bupropion HCl 300 mg Oral Tb24 [Active]; carvedilol 6.25 mg Oral tab [Active]; famotidine 20 mg Oral tab [Active]; fluticasone [Active]; lisinopril 10 mg Oral tab [Active]; metformin 500 mg Oral tab [Active]; quetiapine [Active]; sildenafil [Active]; - PMHx: 14:51 Bipolar disorder; Cataract; diabetes mellitus; Emphysema; Gastroesophageal reflux ap3 disease; Hypertensive disorder; keratitis; scoliosis; skin cancer; - PSHx: 14:51 Appendectomy; ap3 - Immunization history:: Client reports receiving the 2nd dose of the Covid vaccine, Flu vaccine is up to date. - Social history:: Smoking status: Patient reports the use of cigarette tobacco products, smokes one-half pack cigarettes per day. Screenin:52 Abuse screen: Denies threats or abuse. Nutritional screening: No deficits noted. ap3 Tuberculosis screening: No symptoms or risk factors identified. 15:30 [facility] ED Fall Risk Assessment (Adult) History of falling in the last 3 months, db including since admission No falls in past 3 months (0 pts) Confusion or Disorientation No (0 pts) Intoxicated or Sedated No (0 pts) Impaired Gait Yes (1 pt) Mobility Assist Device Used Yes (1 pt) Altered Elimination No (0 pt) Score/Fall Risk Level 0 - 2 = Low Risk Oriented to surroundings, Maintained a safe environment. Assessment: 15:30 Reassessment: Patient appears in no apparent distress at this time. Patient and/or db family updated on plan of care and expected duration. Pain level reassessed. Patient is alert, oriented x 3, equal unlabored respirations, skin warm/dry/pink. states has abdominal discomfort and constipation. states has hx of cancer. General: Appears in no apparent distress. comfortable, Behavior is calm, cooperative, appropriate for age. Pain: Complains of pain in abdomen. Neuro: No deficits noted. Level of Consciousness is awake, alert, obeys commands, Oriented to person, place, time, situation. Cardiovascular: No deficits noted. Cardiovascular: Cardiovascular:. Respiratory: No deficits noted. Airway is patent Respiratory effort is even, unlabored, Respiratory pattern is regular, symmetrical. GI: No deficits noted. Bowel sounds present X 4 quads. Abd is soft Abd is non tender. GI: Last BM was October 13, 2022. : No deficits noted. No signs and/or symptoms were reported regarding the genitourinary system. EENT: No deficits noted. No signs and/or symptoms were reported regarding the EENT system. Derm: No deficits noted. No signs and/or symptoms reported regarding the dermatologic system. 16:23 Reassessment: left to cat scan with tech in wheelchair. em6 16:39 Reassessment: patient is back from ct. em6 16:39 Reassessment: Patient appears in no apparent distress at this time. Patient and/or em6 family updated on plan of care and expected duration. Pain level reassessed. Patient is alert, oriented x 3, equal unlabored respirations, skin warm/dry/pink. Vital Signs: 14:49 BP 139 / 91; Pulse 76; Resp 17; Temp 98.1; Pulse Ox 98% ; Weight 74.84 kg; Height 6 ft. ap3 (182.88 cm); Pain 0/10; 15:30 BP 127 / 92; Pulse 79; Resp 18; Pulse Ox 97% on R/A; db 16:00 BP 148 / 93; Pulse 70; Resp 18; Pulse Ox 99% on R/A; em6 17:20 BP 163 / 94; Pulse 76; Resp 18; Pulse Ox 96% on R/A; em6 14:49 Body Mass Index 22.38 (74.84 kg, 182.88 cm) ap3 Belia Coma Score: 15:30 Eye Response: spontaneous(4). Verbal Response: oriented(5). Motor Response: obeys db commands(6). Total: 15. ED Course: 14:19 Patient arrived in ED. rg4 14:19 Yovany Rosas DO is Private Physician. rg4 14:44 Montserrat Ontiveros F[facility]. jh7 14:45 Darrick Louis MD is Attending Physician. jh7 14:51 Triage completed. ap3 14:52 Arm band placed on right wrist. ap3 15:30 Patient has correct armband on for positive identification. Bed in low position. Call db light in reach. Side rails up X 1. Client placed on continuous cardiac and pulse oximetry monitoring. NIBP monitoring applied. Warm blanket given. 15:30 No provider procedures requiring assistance completed. Inserted saline lock: 20 gauge db in right antecubital area, using aseptic technique. ,using aseptic technique. started by another staff member Blood collected. 16:14 Alice Guadalupe, RN is Primary Nurse. em6 16:33 CT Abd/Pelvis - IV Contrast Only In Process Unspecified. EDMS 17:10 Yovany Rosas DO is Referral Physician. jh7 17:32 IV discontinued, intact, bleeding controlled, No redness/swelling at site. Pressure em6 dressing applied. Administered Medications: 15:41 Drug: NS 0.9% 1000 ml Route: IV; Rate: 1 bolus; Site: right antecubital; db 17:21 Follow up: Response: No adverse reaction; IV Status: Completed infusion; IV Intake: em6 1000ml 17:08 Drug: Lactulose 30 grams Volume: 45 ml; Route: PO; em6 17:21 Follow up: Response: No adverse reaction em6 Medication: 15:30 VIS not applicable for this client. db Intake: 17:21 IV: 1000ml; Total: 1000ml. em6 Outcome: 17:10 Discharge ordered by . jh7 17:32 Discharged to home via wheelchair, with family. em6 17:32 Condition: stable 17:32 Discharge instructions given to patient, family, Instructed on discharge instructions, follow up and referral plans. medication usage, Demonstrated understanding of instructions, follow-up care, medications, Prescriptions given X 1. 17:32 Patient left the ED. em6 Signatures: Dispatcher [employer] Deya Miles rg4 Rachel Chen, RN RN ap3 Montserrat Ontiveros FNP LAB HEAD jh7 Alice Guadalupe RN RN em6 Garima Pathak RN RN db
[2022-10-24] MEDS ORDERED: LACTULOSE 20 GM/30 ML UCUP ONE (17:17)
[2022-10-24 17:36] VITALS: TEMP 98.1
[2022-10-24 17:40] VITALS: BP 163/94; O2SAT 96
== END 2022-10-24 17:32 | disposition home or self-care (01) ==
LOC: ER 14:16
DX: K59.00 Constipation, unspecified (principal); E11.9 Type 2 diabetes mellitus without complications; I10 Essential (primary) hypertension; F17.210 Nicotine dependence, cigarettes, uncomplicated; Z79.82 Long term (current) use of aspirin
CPT/HCPCS: 85025; 36415; 83690; 80053; 74177; Q9967; J7030; 81003; 81015; 96360; 96361; 99284